=== PATIENT | female | born 1945 ===

== ENCOUNTER 2016-11-15 12:51 | Emergency (ER) | payer MEDICARE, OTHER ==
[2016-11-15 12:52] VITALS: BMI 32.8
[2016-11-15 13:01] VITALS: BP 139/81; PULSE 66; RESP 18; TEMP 97.5; O2SAT 98
--- NOTE | 2016-11-15 14:03 | C.PDOC ---
History Of Present Illness Valentina Cline, a 71 year old female, with a past medical history of arthritis presents to the ED complaining of pain in her right shoulder and right back radiating down her right arm associated with paresthesias x1 week. Her family member states that she has been bathing in cold water and that may be the cause of her pain. Denies chest pain, shortness of breath, fall, injury. PMD: Dmitry Roman Jr. Time Seen by Provider: 11/15/16 13:39 Chief Complaint (Nursing): Upper Extremity Problem/Injury History Per: Patient, Family History/Exam Limitations: no limitations Onset/Duration Of Symptoms: Days Current Symptoms Are (Timing): Still Present Quality: "Pain" Pain Scale Rating Of: 10 Exacerbating Factor(s): Worse At Night Recent travel outside of the [place]: No Past Medical History Reviewed: Historical Data, Nursing Documentation, Vital Signs Vital Signs: Last Vital Signs Temp 97.5 F L 11/15/16 12:59 Pulse 66 11/15/16 12:59 Resp 18 11/15/16 12:59 BP 139/81 11/15/16 12:59 Pulse Ox 98 11/15/16 14:36 - Medical History PMH: Arthritis, Depression, HTN, Hyperlipidemia, Hyperthyroidism, Hypothyroidism Denies: Chronic Kidney Disease Surgical History: No Surg Hx - [facility] Procedures ESOPHAGOGASTRODUODENOSCOPY [EGD] W/CLOSED BIOPSY (08/22/14) Family History: States: Unknown Family Hx - Social History Hx Tobacco Use: No Hx Alcohol Use: No Hx Substance Use: No - Immunization History Hx Tetanus Toxoid Vaccination: No Hx Influenza Vaccination: No Hx Pneumococcal Vaccination: No Review Of Systems Cardiovascular: Negative for: Chest Pain Respiratory: Negative for: Shortness of Breath Musculoskeletal: Positive for: Shoulder Pain (right shoulder pain), Arm Pain ( right arm pain), Back Pain (right back pain) Physical Exam - Physical Exam Appears: Well, Non-toxic, No Acute Distress Skin: Normal Color, Warm, Dry, No Rash Head: Atraumatic, Normacephalic, No Tenderness, No Swelling Eye(s): bilateral: Normal Inspection, PERRL, EOMI Oral Mucosa: Moist Neck: Normal ROM, Paracervical Tenderness, Supple Cardiovascular: Rhythm Regular, No Edema, No Murmur Respiratory: Normal Breath Sounds, No Rales, No Rhonchi, No Wheezing Back: No Normal Inspection (Paracervical tenderness and paralumbar tenderness.) Extremity: Normal ROM (Full ROM of right arm) Neurological/Psych: Oriented x3, Normal Speech, Normal Cognition, Normal Motor, Normal Sensation Gait: Steady ED Course And Treatment O2 Sat by Pulse Oximetry: 98 (RA) Pulse Ox Interpretation: Normal Medical Decision Making Medical Decision Making: On re-exam, the patient reports improvement of symptoms. Lungs are CTA, heart is RRR, abdomen is soft non-tender and patient is tolerating PO well. Ambulatory in the ED with steady gait. Follow up with the medical doctor within 1-2 days. Return if worsened. Disposition - Disposition Referrals: Dmitry Hui Jr., MD [Medical Doctor] - Disposition: HOME/ ROUTINE Disposition Time: 14:34 Condition: GOOD Additional Instructions: Follow up with the medical doctor within 1-2 days without fail. Return if worsened. Prescriptions: Acetaminophen [Tylenol] 325 mg PO Q6 PRN #30 tab PRN Reason: Pain, Mild (1-3) Cyclobenzaprine [Flexeril] 5 mg PO TID #21 tab Ibuprofen [Motrin] 1 tab PO TID PRN #30 tab PRN Reason: Pain Instructions: Cervical Radiculopathy (ED) Forms: [facility] (Burkinan) Print Language: URDU - Clinical Impression Clinical Impression: Cervical radiculopathy - Scribe Statement The provider has reviewed the documentation as recorded by the Scribsamson Deleon All medical record entries made by the Genibe were at my direction and personally dictated by me. I have reviewed the chart and agree that the record accurately reflects my personal performance of the history, physical exam, medical decision making, and the department course for this patient. I have also personally directed, reviewed, and agree with the discharge instructions and disposition.
== END 2016-11-15 14:51 | disposition home or self-care (01) ==
LOC: C.ER 12:51
DX: M54.12 Radiculopathy, cervical region (principal)
CPT/HCPCS: 96372; 99283; J1885

== ENCOUNTER 2016-11-25 07:14 | Day surgery (SDC) | payer MEDICARE, OTHER ==
[2016-11-25] MEDS ORDERED: Propofol 10 mg/ml Inj (20 ML) ONE (07:37)
[2016-11-25] MEDS ORDERED: Lactated Ringer's 500 ML IV ONE (09:25)
--- NOTE | 2016-11-25 09:26 | CP.SDSHP ---
Same Day Surgery H & P - History Proposed Procedure: Colonoscopy and biopsy Pre-Op Diagnosis: Chronic Diarrhea - Previous Medical/Surgical History Cardiac: Hypertension Endocrine/Metabolic: Thyroid Disease, Diabetes Previous Surgical History: Cholecystectomy - Allergies Allergies: Allergies Penicillins Allergy (Verified 11/15/16 13:01) shellfish derived Allergy (Verified 11/15/16 13:01) - Current Medications Current Medications: reviewed, per reconciliation - Physical Exam General Appearance: wdwn nad Vital Signs: Vital Signs 11/25/16 08:04 Temperature 97.4 F L Pulse Rate 73 Respiratory 20 Rate Blood Pressure 150/72 O2 Sat by Pulse 98 Oximetry Mental Status: Alert & Oriented x3 Heart: WNL Lungs: WNL GI: WNL - {Optional Preform as Required} Abdomen: WNL - Impression Impression: Chronic Diarrhea Pt. Evaluated Today:Candidate for Anesthesia & Procedure: Yes - Date & Time Date: 11/25/16 Time: 09:26 Short Stay Discharge - Short Stay Discharge Admitting Diagnosis/Reason for Visit: DIARRHEA, UNSPECIFIED Disposition: HOME/ ROUTINE
[2016-11-25 10:17] VITALS: RESP 19
[2016-11-25 12:34] VITALS: BP 141/71; PULSE 68; TEMP 97.5; O2SAT 0
== END 2016-11-25 11:15 | disposition home or self-care (01) ==
LOC: C.ENDO 07:14
PROVIDERS: ATTEND Internal Medicine Gastroenterology
DX: D12.3 Benign neoplasm of transverse colon (principal); K52.9 Noninfective gastroenteritis and colitis, unspecified; K57.30 Diverticulosis of large intestine without perforation or abscess without bleeding; K62.89 Other specified diseases of anus and rectum; E11.9 Type 2 diabetes mellitus without complications; E03.9 Hypothyroidism, unspecified; E78.5 Hyperlipidemia, unspecified; I10 Essential (primary) hypertension; K21.9 Gastro-esophageal reflux disease without esophagitis
CPT/HCPCS: 45380; 45385; 82948; 87045; 87177; 87209; 87230; 88305; 88313; 88342; J2704; J7120

== ENCOUNTER 2017-03-17 14:52 | Emergency (ER) | payer MEDICARE, OTHER ==
[2017-03-17 15:03] VITALS: BMI 32.9
[2017-03-17 15:11] VITALS: PULSE 64; O2SAT 94
--- NOTE | 2017-03-17 16:44 | C.PDOC ---
History Of Present Illness 71 year old female presents to the ED for evaluation of muscular type pain across her shoulders and front chest. Patient described the pain as sharp, stabbing that later turns into pressure like that lasts 10 seconds comes and goes and happens through out the day. Patient was seen by Dr. Hui 2 days ago and prescribed her meloxicam that she has been taking for 2 days with no relief. Patient denies SOB or cough, nausea, vomit, dizziness, abdominal pain, diarrhea. Time Seen by Provider: 03/17/17 15:48 Chief Complaint (Nursing): Chest Pain History Per: Patient History/Exam Limitations: no limitations Onset/Duration Of Symptoms: Days Current Symptoms Are (Timing): Still Present Quality: Sharp, Pressure, "Pain" Modifying Factors: None Exacerbating Factors: None Recent travel outside of the [place]: No Additional History Per: Patient Past Medical History Reviewed: Historical Data, Nursing Documentation, Vital Signs Vital Signs: Last Vital Signs Temp 98.0 F 03/17/17 15:07 Pulse 64 03/17/17 15:07 Resp 16 03/17/17 15:07 BP 134/90 03/17/17 15:07 Pulse Ox 94 L 03/17/17 18:46 - Medical History PMH: Arthritis, Depression, Diverticulitis, HTN, Hypercholesterolemia, Hyperlipidemia, Hyperthyroidism, Hypothyroidism Denies: Chronic Kidney Disease Surgical History: Cholecystectomy - [facility] Procedures ESOPHAGOGASTRODUODENOSCOPY [EGD] W/CLOSED BIOPSY (08/22/14) Family History: States: Unknown Family Hx - Social History Hx Tobacco Use: No Hx Alcohol Use: No Hx Substance Use: No - Immunization History Hx Tetanus Toxoid Vaccination: No Hx Influenza Vaccination: No Hx Pneumococcal Vaccination: Yes Review Of Systems Constitutional: Negative for: Fever, Chills Cardiovascular: Positive for: Chest Pain. Negative for: Palpitations Respiratory: Negative for: Cough, Shortness of Breath Gastrointestinal: Negative for: Nausea, Vomiting, Abdominal Pain Musculoskeletal: Positive for: Shoulder Pain (B/L) Neurological: Negative for: Weakness, Numbness, Headache, Dizziness Physical Exam - Physical Exam Appears: Non-toxic, No Acute Distress Skin: Normal Color, Warm, Dry Head: Atraumatic, Normacephalic Nose: No Discharge Oral Mucosa: Moist Neck: Normal ROM, Supple Chest: Symmetrical Cardiovascular: Rhythm Regular, No Murmur Respiratory: Normal Breath Sounds, No Rales, No Rhonchi, No Wheezing Gastrointestinal/Abdominal: Soft, No Tenderness, No Distention, No Rebound Back: Other (B/L muscle tenderness to palpation across upper shoulder ) Extremity: Normal ROM, No Pedal Edema, No Calf Tenderness, No Deformity, No Swelling Neurological/Psych: Oriented x3, Normal Speech, Normal Cognition Gait: Steady ED Course And Treatment - Laboratory Results Result Diagrams: 03/17/17 16:53 03/17/17 16:52 Lab Interpretation: Normal ECG: Interpreted By Me ECG Rhythm: Sinus Rhythm (with mild criteria for LVH) O2 Sat by Pulse Oximetry: 94 (On RA) Pulse Ox Interpretation: Normal - Radiology CXR: Viewed By Az CXR Interpretation: Yes: Infiltrates (Left basilar atelectasis/infiltrate and or small effusion. Right basilar atelectasis/infiltrate. ), Cardiomegaly ( Cardiomegaly. Tortuous aorta.) Progress Note: Portable CXR showing a new effusion with bibasilar atelectasis/ infiltrates. Repeat PA and Lat CXR ordered. Reevaluation Time: 20:32 Reassessment Condition: Improved (Repeat CXR normal compared to prior.) - Physician Consult Information Time Consulting Physician Contacted: 18:43 Physician Contacted: Dmitry Hui Jr. Outcome Of Conversation: He will follow up with patient in the office this week. Medical Decision Making Medical Decision Making: Impression : 71 y/o female with muscle pain across her upper shoulders B/L Plan: * EKG * Blood work * CXR Disposition Counseled Patient/Family Regarding: Studies Performed, Diagnosis, Need For Followup - Disposition Referrals: Dmitry Hui Jr., MD [Medical Doctor] - Disposition: HOME/ ROUTINE Disposition Time: 20:35 Condition: STABLE Additional Instructions: Continue taking the Meloxicam as prescribed. Take tylenol if additional pain medication is needed. Use a topical rub like Icy Hot for local relief. Instructions: Musculoskeletal Pain (ED) Print Language: MALAWIAN - Clinical Impression Clinical Impression: Musculoskeletal pain - Scribe Statement The provider has reviewed the documentation as recorded by the Scribe Odilon Solano All medical record entries made by the Scribe were at my direction and personally dictated by me. I have reviewed the chart and agree that the record accurately reflects my personal performance of the history, physical exam, medical decision making, and the department course for this patient. I have also personally directed, reviewed, and agree with the discharge instructions and disposition.
[2017-03-17 17:00] LABS: BASO # 0.1 K/uL (0.0-0.2); BASO % 1.5 % (0.0-2.0); EOS # 0.2 K/uL (0.0-0.7); EOS % 3.4 % (0.0-4.0); HEMATOCRIT 40.8 % (34.0-47.0); LYMPH # 1.8 K/uL (1.0-4.3); LYMPH % 27.7 % (20.0-40.0); MEAN CORPUSCULAR HEMOGLOBIN 30.3 pg (27.0-31.0); MEAN CORPUSCULAR HGB CONC 34.7 g/dL (33.0-37.0); MEAN PLATELET VOLUME 8.7 fL (7.2-11.7); MONO # 0.6 K/uL (0.0-0.8); MONO % 9.7 % (0.0-10.0); NRBC % 0.1 % (0.0-2.0); RED CELL DISTRIBUTION WIDTH 14.4 % (11.5-14.5); WHITE BLOOD COUNT 6.6 K/uL (4.8-10.8)
[2017-03-17 17:03] LABS: MEAN CELL VOLUME 87.2 fL (81.0-99.0)
[2017-03-17 17:09] LABS: ALB/GLOB RATIO 1.3 (1.0-2.1); ALKALINE PHOSPHATASE 69 U/L (38-126); ALT/SGPT 24 U/L (9-52); AST/SGOT 27 U/L (14-36); BILIRUBIN,TOTAL 0.5 mg/dL (0.2-1.3); BLOOD UREA NITROGEN 18 mg/dL (7-17); CALCIUM 8.6 mg/dl (8.6-10.4); CARBON DIOXIDE 28 mmol/L (22-30); CHLORIDE 100 mmol/L (98-107); GFR AFRICAN-AMERICAN > 60; GLUCOSE,RANDOM 97 mg/dL (65-105); POTASSIUM 4.1 mmol/L (3.6-5.2); SODIUM 135 mmol/L (132-148); TOTAL PROTEIN 6.6 g/dL (6.3-8.3)
--- NOTE | 2017-03-17 17:39 | RAD ---
HISTORY: SOB COMPARISON: Chest x-ray performed 01/28/17, lung bases on CT of the abdomen and pelvis performed 01/28/17 TECHNIQUE: Chest, one view. FINDINGS: Examination limited by habitus. LUNGS: Left basilar atelectasis/infiltrate and or small effusion. Right basilar atelectasis/infiltrate. No definite pneumothorax. Please note that chest x-ray has limited sensitivity for the detection of pulmonary masses. CARDIOVASCULAR: Cardiomegaly. Tortuous aorta. OSSEOUS STRUCTURES: Degenerative changes. VISUALIZED UPPER ABDOMEN: Mild elevation of the right hemidiaphragm. OTHER FINDINGS: None. IMPRESSION: Left basilar atelectasis/infiltrate and or small effusion. Right basilar atelectasis/infiltrate. Cardiomegaly. Tortuous aorta.
[2017-03-17 20:38] VITALS: BP 145/71; RESP 22; TEMP 98.5
--- NOTE | 2017-03-18 09:19 | RAD ---
HISTORY: COMPARISON: 03/17/2017 TECHNIQUE: Chest PA and lateral FINDINGS: LINES AND TUBES: None. LUNG AND PLEURA: The lungs are well inflated and clear. There is airspace in the right lung base. HEART AND MEDIASTINUM: The heart is not enlarged. The hilar and mediastinal contours are within normal limits. SKELETAL STRUCTURES: The bony structures are within normal limits for the patient's age. VISUALIZED UPPER ABDOMEN: Normal. OTHER FINDINGS: None. IMPRESSION: Airspace disease in the right lung base may represent atelectasis or pneumonia. Follow-up after medical management is recommended to ensure complete resolution.
== END 2017-03-17 20:37 | disposition home or self-care (01) ==
LOC: C.ER 14:52
DX: M79.1 Myalgia (principal)

== ENCOUNTER 2017-12-11 22:09 | Emergency (ER) | payer MEDICARE, OTHER ==
[2017-12-11 22:09] VITALS: BMI 32.9
[2017-12-11 22:29] VITALS: O2SAT 97
[2017-12-11 22:37] VITALS: BP 141/80; PULSE 78; TEMP 99.6
--- NOTE | 2017-12-11 23:43 | C.PDOC ---
History Of Present Illness Pt c/o of pain to right shoulder x 3 days progressively worse. States past h/o of arthritis with past shoulder pain but more painful today worse with movements. Patient denies trauma, weakness or numbness of the extremity. Pt also c/o of pain nad itching to throat , took 1 tab of an antibiotic pill earlier, no URI sx, no dysphagia, drooling or neck swelling Time Seen by Provider: 12/11/17 22:44 Chief Complaint (Nursing): Upper Extremity Problem/Injury History Per: Patient, Family (sons) History/Exam Limitations: no limitations Current Symptoms Are (Timing): Still Present Quality: "Pain" Severity: Moderate Recent travel outside of the [place]: No Past Medical History Vital Signs: Last Vital Signs Temp 99.6 F 12/11/17 22:35 Pulse 78 12/11/17 22:35 Resp 18 12/11/17 22:35 BP 141/80 12/11/17 22:35 Pulse Ox 97 12/11/17 22:35 - Medical History PMH: Arthritis, Depression, Diverticulitis, HTN, Hypercholesterolemia, Hyperlipidemia, Hyperthyroidism, Hypothyroidism Denies: Chronic Kidney Disease Surgical History: Cholecystectomy - [facility] Procedures ESOPHAGOGASTRODUODENOSCOPY [EGD] W/CLOSED BIOPSY (08/22/14) Family History: States: Unknown Family Hx - Social History Hx Tobacco Use: No Hx Alcohol Use: No Hx Substance Use: No - Immunization History Hx Tetanus Toxoid Vaccination: No Hx Influenza Vaccination: No Hx Pneumococcal Vaccination: Yes Review Of Systems Constitutional: Negative for: Chills Cardiovascular: Negative for: Chest Pain Respiratory: Negative for: Cough, Shortness of Breath Musculoskeletal: Positive for: Shoulder Pain (right). Negative for: Back Pain Neurological: Negative for: Weakness, Numbness Physical Exam - Physical Exam Appears: Well, Non-toxic, No Acute Distress Skin: Normal Color Head: Atraumatic Eye(s): bilateral: Normal Inspection Throat: Normal, No Erythema, No Exudate, No Drooling Chest: Symmetrical, No Deformity, No Tenderness Cardiovascular: Rhythm Regular Respiratory: Normal Breath Sounds Extremity: No Normal ROM (causes pain), Tenderness (on palpation and motion of right shoulder), Capillary Refill (< 2 sec), No Deformity, No Swelling Extremity: Bilateral: Atraumatic, Normal Color And Temperature Neurological/Psych: Oriented x3, Normal Cognition, Normal Motor, Normal Sensation Gait: Steady ED Course And Treatment O2 Sat by Pulse Oximetry: 97 Pulse Ox Interpretation: Normal Progress Note: Pt feels better after meds, strep test negative and pt will be dc home with tylenol, arm sling and advised PMD f/u. Return precautions discussed with patient and relative Disposition Counseled Patient/Family Regarding: Diagnosis, Need For Followup - Disposition Referrals: Dmitry Hui Jr., MD [Medical Doctor] - Disposition: HOME/ ROUTINE Disposition Time: 23:43 Condition: STABLE Additional Instructions: Please follwo up with Dr Hui on wednesday Take medications as directed Return to ER if worse Prescriptions: Acetaminophen [8Hr Arthritis Pain] 650 mg PO QID #30 tablet.er Loratadine [Claritin] 10 mg PO DAILY #20 tab Instructions: Shoulder Pain (DC) Print Language: AUSTRALIAN - Clinical Impression Clinical Impression: Arthralgia of shoulder region, right, Sore throat
[2017-12-11 23:55] VITALS: RESP 20
== END 2017-12-11 23:54 | disposition home or self-care (01) ==
LOC: C.ER 22:09
DX: M25.511 Pain in right shoulder (principal); J02.9 Acute pharyngitis, unspecified; E78.00 Pure hypercholesterolemia, unspecified; I10 Essential (primary) hypertension; E78.5 Hyperlipidemia, unspecified
CPT/HCPCS: 87070; 87430; 96372; 99285; J1885

== ENCOUNTER 2017-12-25 12:34 | Observation (INO) | payer MEDICARE, OTHER ==
[2017-12-25 12:34] VITALS: BMI 32.9
[2017-12-25] MEDS ORDERED: Aspirin 325 mg EC Tablets PO STA (13:24)
[2017-12-25 13:44] LABS: BASO % 0.3 % (0.0-2.0); EOS # 0.2 K/uL (0.0-0.7); EOS % 2.5 % (0.0-4.0); HEMOGLOBIN 14.7 g/dL (11.0-16.0); LYMPH # 1.8 K/uL (1.0-4.3); LYMPH % 20.5 % (20.0-40.0); MEAN CELL VOLUME 87.8 fL (81.0-99.0); MEAN CORPUSCULAR HEMOGLOBIN 29.7 pg (27.0-31.0); MEAN CORPUSCULAR HGB CONC 33.9 g/dL (33.0-37.0); MEAN PLATELET VOLUME 8.7 fL (7.2-11.7); MONO # 0.7 K/uL (0.0-0.8); MONO % 8.6 % (0.0-10.0); NEUT # 5.9 K/uL (1.8-7.0); NEUT % 68.1 % (50.0-75.0); NRBC % 0.1 % (0.0-2.0); RBC 4.93 Mil/uL (3.80-5.20); RED CELL DISTRIBUTION WIDTH 14.7 % (11.5-14.5); WHITE BLOOD COUNT 8.7 K/uL (4.8-10.8)
[2017-12-25 13:48] LABS: URINE BILIRUBIN NEGATIVE (NEGATIVE); URINE BLOOD NEGATIVE (NEGATIVE); URINE CLARITY Clear (Clear); URINE COLOR Colorless (YELLOW); URINE GLUCOSE (UA) NORMAL (Normal); URINE LEUKOCYTE ESTERASE NEG Leu/uL (Negative); URINE PROTEIN NEGATIVE (NEGATIVE); URINE UROBILINOGEN NORMAL mg/dL (0.2-1.0)
[2017-12-25] MEDS ORDERED: Aspirin 325 mg EC Tablets PO ONE (13:59)
[2017-12-25 14:00] LABS: ALBUMIN 4.1 g/dL (3.5-5.0); BLOOD UREA NITROGEN 14 mg/dL (7-17); CALCIUM 9.1 mg/dl (8.6-10.4); GFR NON-AFRICAN AMERICAN > 60
[2017-12-25 14:07] LABS: ALT/SGPT 19 U/L (9-52); AST/SGOT 36 U/L (14-36)
--- NOTE | 2017-12-25 14:07 | C.PDOC ---
History Of Present Illness 72 y/o female, presents to the ER with son, complaining of positionally and digitally reproducible chest pain, positionally and digitally reproducible right shoulder and right arm pain which began in the morning today. Patient is also complaining of mild headache. She notes that she has recent social stressor, she has a sick sibling. Patient denies having SOB,cough, fever, chills, weakness and numbness. Time Seen by Provider: 12/25/17 13:19 Chief Complaint (Nursing): Weakness/Neurological Deficit History Per: Patient History/Exam Limitations: no limitations Onset/Duration Of Symptoms: Days Current Symptoms Are (Timing): Still Present Severity: Moderate Past Medical History Reviewed: Historical Data, Nursing Documentation, Vital Signs Vital Signs: Last Vital Signs Temp 98.5 F 12/25/17 12:41 Pulse 85 12/25/17 13:53 Resp 17 12/25/17 13:53 BP 151/75 H 12/25/17 13:53 Pulse Ox 98 12/25/17 13:53 - Medical History PMH: Arthritis, Depression, Diverticulitis, HTN, Hypercholesterolemia, Hyperli pidemia, Hyperthyroidism, Hypothyroidism Denies: Chronic Kidney Disease Surgical History: Cholecystectomy - [facility] Procedures ESOPHAGOGASTRODUODENOSCOPY [EGD] W/CLOSED BIOPSY (08/22/14) Family History: States: No Known Family Hx - Social History Hx Tobacco Use: No Hx Alcohol Use: No Hx Substance Use: No - Immunization History Hx Tetanus Toxoid Vaccination: No Hx Influenza Vaccination: No Hx Pneumococcal Vaccination: Yes Review Of Systems Except As Marked, All Systems Reviewed And Found Negative. Constitutional: Negative for: Fever, Chills Cardiovascular: Positive for: Chest Pain Respiratory: Negative for: Cough, Shortness of Breath Musculoskeletal: Positive for: Shoulder Pain (right shoulder pain), Arm Pain (right arm pain) Neurological: Positive for: Headache (mild headache). Negative for: Weakness, Numbness Physical Exam - Physical Exam Appears: Non-toxic, No Acute Distress, Other (elderly female) Skin: Normal Color, Warm, Dry Head: Atraumatic, Normacephalic Eye(s): bilateral: Normal Inspection Nose: Normal Oral Mucosa: Moist Neck: Supple Chest: Symmetrical, Tenderness (digital and positional reproducible tenderness to bilateral parasternal regions) Cardiovascular: Rhythm Regular Respiratory: Normal Breath Sounds, No Rales, No Rhonchi, No Wheezing Gastrointestinal/Abdominal: Normal Exam, Soft, No Tenderness, No Guarding, No Rebound Extremity: Normal ROM, Tenderness (vague tenderness throughout right arm), No Swelling, Other (no tenderness to right shoulder) Neurological/Psych: Oriented x3, Normal Speech ED Course And Treatment - Laboratory Results Result Diagrams: 12/27/17 06:25 12/27/17 06:25 Lab Interpretation: Normal (trop neg. ua neg.) O2 Sat by Pulse Oximetry: 98 Pulse Ox Interpretation: Normal - Radiology CXR: Interpreted by Me CXR Interpretation: Yes: No Acute Disease, Heart Size, Other (widened mediastinum, unchanged from prior) Reevaluation Time: 14:20 Reassessment Condition: Improved - Physician Consult Information Outcome Of Conversation: 1420: d/w Dr. Virgen @ 1330 and 1415, ok to Tele Obs. d/w Medicine Al[facility] Medical Decision Making Medical Decision Making: sternal costochondritis ice packs, NSAIDS R arm discomfort h/o same musculoskeletal Anxiety/depression h/o same exacerbated by dealing with sick relative NAD in ED Disposition Doctor Will See Patient In The: Hospital Counseled Patient/Family Regarding: Studies Performed, Diagnosis - Disposition Disposition: HOSPITALIZED Disposition Time: 14:21 Condition: GOOD - Clinical Impression Clinical Impression: Chest wall discomfort, Right arm pain, Anxiety and depression - Scribe Statement The provider has reviewed the documentation as recorded by the Oj Marcus Provider Attestation: All medical record entries made by the Genibe were at my direction and personally dictated by me. I have reviewed the chart and agree that the record accurately reflects my personal performance of the history, physical exam, medical decision making, and the department course for this patient. I have also personally directed, reviewed, and agree with the discharge instructions and disposition.
--- NOTE | 2017-12-25 14:15 | C.PDOC ---
Time Seen by Provider: 12/25/17 13:19 Chief Complaint (Nursing): Weakness/Neurological Deficit Past Medical History Vital Signs: Last Vital Signs Temp 98.5 F 12/25/17 12:41 Pulse 85 12/25/17 13:53 Resp 17 12/25/17 13:53 BP 151/75 H 12/25/17 13:53 Pulse Ox 98 12/25/17 13:53 - Medical History PMH: Arthritis, Depression, Diverticulitis, HTN, Hypercholesterolemia, Hyperlipidemia, Hyperthyroidism, Hypothyroidism Denies: Chronic Kidney Disease Surgical History: Cholecystectomy - [facility] Procedures ESOPHAGOGASTRODUODENOSCOPY [EGD] W/CLOSED BIOPSY (08/22/14) Family History: States: Unknown Family Hx - Social History Hx Tobacco Use: No Hx Alcohol Use: No Hx Substance Use: No - Immunization History Hx Tetanus Toxoid Vaccination: No Hx Influenza Vaccination: No Hx Pneumococcal Vaccination: Yes ED Course And Treatment - Laboratory Results Result Diagrams: 12/25/17 13:34 12/25/17 13:34 O2 Sat by Pulse Oximetry: 98 Disposition - Disposition
--- NOTE | 2017-12-25 16:08 | CP.PCM.HP ---
History of Present Illness - History of Present Illness History of Present Illness: 72F PMhx arthritis, anxiety, depression, diverticulitis, HTN, HLD, hypothyroidism, presented to ED with son c/o R sided chest pain and R arm pain that started this am. Denied any inciting factors, able to tolerate PO diet without concerns or assoc. N/v. Denied decreased appetite. Describes chest pain as achy, non-radiating. On further questioning, pt reported generalized somatic pain, pointing to her L abdomen, her L leg, and also c/o headache. Pts son at bedside reports that pts brother recently a few days ago, and pt was stressed about her brother being very sick for the past several weeks (does not know that her brother is currently). Pt recently seen in [facility] ED for shoulder pain on 12/11/17 and was recently given steroid injection. Pts son reports that pt has had a flat affect at home and has recently been feeling more depressed. Pt denied SI/HI. Denied shortness of breath, d/c, urinary complaints, vision changes/blurry vision, lightheadedness/dizziness, or other symptoms. No recent changes in medications. Pt recently followed with Dr. Hui in clinic 2 weeks ago. Pt regularly follows w axel Ceja (Cardiology), last saw him 1 month prior, and as per son, stress testing and echo within the past year has been normal. PMhx: as listed above PSurgHx: Cholecystectomy Allergies: iodine, PCN (rash), shellfish Home meds: Carvedilol 25 mg bid, Synthroid 50 mg daily, Januvia 50 mg bid, Nexium 40 mg daily Fam hx: denies Soc hx: Denies smoking, EtOH, or illict drug use Present on Admission - Present on Admission Any Indicators Present on Admission: No Review of Systems - Constitutional Constitutional: Fatigue, Headache. absent: Chills, Fever, Weight Gain, Weight Loss - EENT Eyes: absent: Blurred Vision, Change in Vision - Cardiovascular Cardiovascular: Chest Pain, Chest Pain with Activity. absent: Dyspnea on Exertion - Gastrointestinal Gastrointestinal: Abdominal Pain, Dyspepsia. absent: Constipation, Diarrhea, Vomiting Past Patient History - Infectious Disease Hx of Infectious Diseases: None - Past Medical History & Family History Past Medical History?: Yes - Past Social History Smoking Status: Never Smoked - CARDIAC Hx Hypercholesterolemia: Yes Hx Hypertension: Yes - PULMONARY Hx Respiratory Disorders: No - NEUROLOGICAL Hx Neurological Disorder: No - HEENT Hx HEENT Problems: Yes Hx Cataracts: Yes - RENAL Hx Chronic Kidney Disease: No - ENDOCRINE/METABOLIC Hx Hyperthyroidism: Yes Hx Hypothyroidism: Yes - HEMATOLOGICAL/ONCOLOGICAL Hx Blood Disorders: No - INTEGUMENTARY Hx Dermatological Problems: No - MUSCULOSKELETAL/RHEUMATOLOGICAL Hx Arthritis: Yes - GASTROINTESTINAL Hx Diverticulitis: Yes - GENITOURINARY/GYNECOLOGICAL Hx Genitourinary Disorders: No - PSYCHIATRIC Hx Depression: Yes Hx Substance Use: No - SURGICAL HISTORY Hx Cholecystectomy: Yes - ANESTHESIA Hx Anesthesia: Yes Hx Anesthesia Reactions: No Hx Malignant Hyperthermia: No Meds Allergies/Adverse Reactions: Allergies Allergy/AdvReac Type Severity Reaction Status Date / Time iodine Allergy ITCHING Verified 12/25/17 12:44 Penicillins Allergy SWELLING Verified 12/25/17 12:44 shellfish derived Allergy ITCHING Verified 12/25/17 12:44 Physical Exam - Constitutional Appears: Non-toxic, No Acute Distress - Head Exam Head Exam: ATRAUMATIC, NORMOCEPHALIC - Eye Exam Eye Exam: EOMI, Normal appearance, PERRL - ENT Exam ENT Exam: Mucous Membranes Moist - Respiratory Exam Respiratory Exam: Chest Wall Tenderness, Clear to Auscultation Bilateral, NORMAL BREATHING PATTERN. absent: Rales, Rhonchi, Wheezes - Cardiovascular Exam Cardiovascular Exam: REGULAR RHYTHM, +S1, +S2. absent: Gallop, Rubs, Systolic Murmur - GI/Abdominal Exam GI & Abdominal Exam: Normal Bowel Sounds, Soft. absent: Distended, Firm, Guarding, Organomegaly, Rebound, Rigid, Tenderness - Extremities Exam Extremities exam: Positive for: full ROM, normal capillary refill, normal inspection, pedal pulses present. Negative for: pedal edema - Neurological Exam Neurological exam: Alert, CN II-XII Intact, Oriented x3, Reflexes Normal - Psychiatric Exam Psychiatric exam: Flat Affect - Skin Skin Exam: Dry, Intact, Normal Color, Warm Results - Vital Signs Recent Vital Signs: Last Vital Signs Temp 98.5 F 12/25/17 12:41 Pulse 85 12/25/17 13:53 Resp 17 12/25/17 13:53 BP 151/75 H 12/25/17 13:53 Pulse Ox 98 12/25/17 14:35 - Labs Result Diagrams: 12/25/17 13:34 12/25/17 13:34 Labs: Laboratory Results - last 24 hr 12/25/17 12/25/17 12/25/17 12:55 13:34 13:34 WBC 8.7 RBC 4.93 Hgb 14.7 Hct 43.3 MCV 87.8 MCH 29.7 MCHC 33.9 RDW 14.7 H Plt Count 227 MPV 8.7 Neut % (Auto) 68.1 Lymph % (Auto) 20.5 Weber % (Auto) 8.6 Eos % (Auto) 2.5 Baso % (Auto) 0.3 Neut # (Auto) 5.9 Lymph # (Auto) 1.8 Weber # (Auto) 0.7 Eos # (Auto) 0.2 Baso # (Auto) 0.0 Sodium Potassium Chloride Carbon Dioxide Anion Gap BUN Creatinine Est GFR ( Amer) Est GFR (Non-Af Amer) POC Glucose (mg/dL) 97 Random Glucose Calcium Total Bilirubin AST ALT Alkaline Phosphatase Troponin I Total Protein Albumin Globulin Albumin/Globulin Ratio Urine Color Colorless Urine Clarity Clear Urine pH 7.0 Ur Specific [place] 1.002 L Urine Protein Negative Urine Glucose (UA) Normal Urine Ketones Negative Urine Blood Negative Urine Nitrate Negative Urine Bilirubin Negative Urine Urobilinogen Normal Ur Leukocyte Esterase Neg 12/25/17 13:34 WBC RBC Hgb Hct MCV MCH MCHC RDW Plt Count MPV Neut % (Auto) Lymph % (Auto) Weber % (Auto) Eos % (Auto) Baso % (Auto) Neut # (Auto) Lymph # (Auto) Weber # (Auto) Eos # (Auto) Baso # (Auto) Sodium 142 Potassium 4.7 Chloride 103 Carbon Dioxide 30 Anion Gap 14 BUN 14 Creatinine 0.9 Est GFR ( Amer) > 60 Est GFR (Non-Af Amer) > 60 POC Glucose (mg/dL) Random Glucose 97 Calcium 9.1 Total Bilirubin 0.6 AST 36 D ALT 19 Alkaline Phosphatase 95 Troponin I < 0.0120 Total Protein 8.1 Albumin 4.1 Globulin 4.0 H Albumin/Globulin Ratio 1.0 Urine Color Urine Clarity Urine pH Ur Specific [place] Urine Protein Urine Glucose (UA) Urine Ketones Urine Blood Urine Nitrate Urine Bilirubin Urine Urobilinogen Ur Leukocyte Esterase Assessment & Plan - Assessment and Plan (Free Text) Assessment: 72F PMhx arthritis, anxiety, depression, diverticulitis, HTN, HLD, hypothyroidism, presented to ED with son c/o R sided chest pain and R arm pain that started this am. Likely 2/2 costochondritis due to reproducible chest pain on exam. Plan: Chest pain likely 2/2 costochondritis, r/o ACS LINO x2 neg CXR demonstrates poor inspiration, atelectasis, cannot exclude left lower lobe infiltrates, continue to monitor, consider possible repeat XR EKG NSR, no acute St-t changes Cardiology consulted (Dr. Ceja) recs appreciated Afebrile, vital signs stable, continue to monitor Anxiety/depression Pt's son reported recent stressor of pt's brother being sick over past several weeks Pt admits to feeling depressed, denied SI/HI Psych consulted (Dr. Reilly) recs appeciated Hx HTN C/w carvedilol 25 mg PO bid Hx hypothyroidism C/w synthroid 50 mcg daily TSH pending in am Hx diverticulitis/acid reflux Nexium 40 mg PO daily Plan discussed with and further recommendations as per Dr. Hui, attending. Yosi Berman DO PGY-1, Elementary School Director Pager #[phone]
--- NOTE | 2017-12-25 16:49 | RAD ---
Date of service: 12/25/2017 PROCEDURE: CHEST RADIOGRAPH, 1 VIEW HISTORY: SOB COMPARISON: None available. FINDINGS: LUNGS: Poor inspiration with low lung volumes, crowded bronchovascular markings and bibasilar atelectasis. Developing lower lobe infiltrates cannot be completely excluded. PLEURA: No pneumothorax or pleural fluid seen. CARDIOVASCULAR: Cardiomegaly with ectatic uncoiled aorta. OSSEOUS STRUCTURES: No significant abnormalities. VISUALIZED UPPER ABDOMEN: Normal. OTHER FINDINGS: None. IMPRESSION: Poor inspiration with low lung volumes, crowded bronchovascular markings and bibasilar atelectasis. Developing lower lobe infiltrates cannot be completely excluded.
[2017-12-25 17:02] VITALS: RESP 20
[2017-12-25 17:25] LABS: CK-MB 0.49 ng/mL (0.0-3.38)
[2017-12-26] MEDS: Levothyroxine 50 MCG TAB PO SCH (06:05)
[2017-12-26 07:41] LABS: BASO % 0.3 % (0.0-2.0); EOS # 0.3 K/uL (0.0-0.7); EOS % 4.5 % (0.0-4.0); HEMOGLOBIN 14.6 g/dL (11.0-16.0); LYMPH # 1.9 K/uL (1.0-4.3); LYMPH % 25.6 % (20.0-40.0); MEAN CELL VOLUME 87.8 fL (81.0-99.0); MEAN CORPUSCULAR HEMOGLOBIN 29.6 pg (27.0-31.0); MEAN CORPUSCULAR HGB CONC 33.7 g/dL (33.0-37.0); MEAN PLATELET VOLUME 8.6 fL (7.2-11.7); MONO # 0.7 K/uL (0.0-0.8); MONO % 9.9 % (0.0-10.0); NEUT # 4.4 K/uL (1.8-7.0); NEUT % 59.7 % (50.0-75.0); RBC 4.93 Mil/uL (3.80-5.20); RED CELL DISTRIBUTION WIDTH 14.8 % (11.5-14.5); WHITE BLOOD COUNT 7.4 K/uL (4.8-10.8)
[2017-12-26 08:28] LABS: ALBUMIN 3.6 g/dL (3.5-5.0); ALT/SGPT 21 U/L (9-52); AST/SGOT 20 U/L (14-36); BLOOD UREA NITROGEN 18 mg/dL (7-17); CALCIUM 9.2 mg/dl (8.6-10.4); GFR NON-AFRICAN AMERICAN 54
--- NOTE | 2017-12-26 10:26 | CP.PCM.CON ---
History of Present Illness - History of Present Illness History of Present Illness: I was asked to evalute patient by Dr clark. Patient is a 72 year old feamle with HTN DM who presents with chest pain. She states she was at home when the pain developed in her chest, with associated headache. The patient presented to the hospital for further management. Troponin has been negative. Review of Systems - Constitutional Constitutional: absent: As Per HPI, Anorexia, Chills, Daytime Sleepiness, Excessive Sweating, Fatigue, Fever, Frequent Falls, Headache, Increased Appetite, Lethargy, Malaise, Night Sweats, Snoring, Sleep Apnea, Weight Gain, Weight Loss, Weakness, Other - EENT Eyes: absent: As Per HPI, Blind Spots, Blurred Vision, Change in Vision, Decreased Night Vision, Diplopia, Discharge, Dry Eye, Exophthalmos, Floaters, Irritation, Itchy Eyes, Loss of Peripheral Vision, Pain, Photophobia, Requires Corrective Lenses, Sees Flashes, Spots in Vision, Tunnel Vision, Other Visual Disturbances, Loss of Vision, Other Ears: absent: As Per HPI, Decreased Hearing, Ear Discharge, Ear Pain, Tinnitus, Abnormal Hearing, Disequilibrium, Dizziness, Other Nose/Mouth/Throat: absent: As Per HPI, Epistaxis, Nasal Congestion, Nasal Discharge, Nasal Obstruction, Nasal Trauma, Nose Pain, Post Nasal Drip, Sinus Pain, Sinus Pressure, Bleeding Gums, Change in Voice, Dental Pain, Dry Mouth, Dysphagia, Halitosis, Hoarsness, Lip Swelling, Mouth Lesions, Mouth Pain, Odyn ophagia, Sore Throat, Throat Swelling, Tongue Swelling, Facial Pain, Neck Pain, Neck Mass, Other - Breasts Breasts: absent: As Per HPI, Change in Shape, Mass, Pain, Nipple Discharge, Nipple Inversion, Skin Changes, Swelling, Other - Cardiovascular Cardiovascular: Chest Pain - Respiratory Respiratory: absent: As Per HPI, Cough, Dyspnea, Hemoptysis, Dyspnea on Exertion, Wheezing, Snoring, Stridor, Pain on Inspiration, Chest Congestion, Excessive Mucous Production, Change in Mucous Color, Pain with Coughing, Other - Gastrointestinal Gastrointestinal: absent: As Per HPI, Abdominal Pain, Belching, Bloating, Change in Bowel Habits, Change in Stool Character, Coffee Ground Emesis, Constipation, Cramping, Diarrhea, Dyspepsia, Dysphagia, Early Satiety, Excessive Flatus, Fecal Incontinence, Heartburn, Hematemesis, Hematochezia, Loose Stools, Melena, Nausea, Odynophagia, Temesmus, Vomiting, Other - Genitourinary Genitourinary: absent: As Per HPI, Change in Urinary Stream, Difficulty Urinating, Dysuria, Flank Pain, Hematuria, Pyuria, Nocturia, Urinary Incontinence, Urinary Frequency, Urinary Hesitance, Urinary Urgency, Voiding Freq/Small Amts, Freq UTI, Hx Renal/Bladder Calculi, Hx /Renal Surgery, Bladder Distension, Other - Musculoskeletal Musculoskeletal: absent: As Per HPI, Abnormal Gait, Arthralgias, Atrophy, Back Pain, Deformity, Joint Swelling, Limited Range of Motion, Loss of Height, Muscle Cramps, Muscle Weakness, Myalgias, Neck Pain, Numbness, Radiating Pain into Limb, Stiffness, Tingling, Other - Integumentary Integumentary: absent: As Per HPI, Acne, Alopecia, Bleeding Lesions, Change in Hair, Change in Nails, Change in Pigmentation, Changing Lesions, Dry Skin, Erythema, Furuncle, Hirsutism, Lesions, New Lesions, Non-Healing Lesions, Photosensitivity, Pruritus, Rash, Skin Pain, Skin Ulcer, Sores, Striae, Swelling, Unusual Bruising, Wounds, Jaundice, Other - Neurological Neurological: absent: As Per HPI, Abnormal Gait, Abnormal Hearing, Abnormal Movements, Abnormal Speech, Behavioral Changes, Burning Sensations, Confusion, Convulsions, Disequilibrium, Dizziness, Numbness, Focal Weakness, Frequent Falls, Headaches, Lack of Coordination, Loss of Vision, Memory Loss, Paresthesias, Radicular Pain, Restless Legs, Sensory Deficit, Syncope, Tingling, Tremor, Vertigo, Weakness, Other Visual Disturbances, Other - Psychiatric Psychiatric: absent: As Per HPI, Abnormal Sleep Pattern, Anhedonia, Anxiety, Auditory Hallucinations, Behavioral Changes, Change in Appetite, Change in Libido, Confusion, Depression, Difficulty Concentrating, Hallucinations, Homicidal Ideation, Hopelessness, Irritability, Memory Loss, Mood Swings, Panic Attacks, Paranoia, Suicidal Ideation, Visual Hallucinations, Tactile Hallucinations, Other - Endocrine Endocrine: absent: As Per HPI, Change in Body Appearance, Change in Libido, Cold Intolorance, Deepening of Voice, Excessive Sweating, Fatigue, Flushing, Heat Intolorance, Increase in Ring/Shoe/Hat Size, Palpitations, Polydipsia, Polyphagia, Polyuria, Other - Hematologic/Lymphatic Hematologic: absent: As Per HPI, Easy Bleeding, Easy Bruising, Lymphadenopathy, Other Past Patient History - Infectious Disease Hx of Infectious Diseases: None - Past Medical History & Family History Past Medical History?: Yes - Past Social History Smoking Status: Never Smoked - CARDIAC Hx Hypercholesterolemia: Yes Hx Hypertension: Yes - PULMONARY Hx Respiratory Disorders: No - NEUROLOGICAL Hx Neurological Disorder: No - HEENT Hx HEENT Problems: Yes Hx Cataracts: Yes - RENAL Hx Chronic Kidney Disease: No - ENDOCRINE/METABOLIC Hx Hyperthyroidism: Yes Hx Hypothyroidism: Yes - HEMATOLOGICAL/ONCOLOGICAL Hx Blood Disorders: No - INTEGUMENTARY Hx Dermatological Problems: No - MUSCULOSKELETAL/RHEUMATOLOGICAL Hx Arthritis: Yes - GASTROINTESTINAL Hx Diverticulitis: Yes - GENITOURINARY/GYNECOLOGICAL Hx Genitourinary Disorders: No - PSYCHIATRIC Hx Depression: Yes Hx Substance Use: No - SURGICAL HISTORY Hx Cholecystectomy: Yes - ANESTHESIA Hx Anesthesia: Yes Hx Anesthesia Reactions: No Hx Malignant Hyperthermia: No Meds Allergies/Adverse Reactions: Allergies Allergy/AdvReac Type Severity Reaction Status Date / Time iodine Allergy ITCHING Verified 12/25/17 12:44 Penicillins Allergy SWELLING Verified 12/25/17 12:44 shellfish derived Allergy ITCHING Verified 12/25/17 12:44 - Medications Medications: Current Medications Acetaminophen (Tylenol 325mg Tab) 650 mg PO Q6H PRN PRN Reason: Pain, moderate (4-7) Carvedilol (Coreg) 25 mg PO BID [facility] Last Admin: 12/26/17 10:04 Dose: 25 mg Heparin Sodium (Porcine) (Heparin) 5,000 units SC Q8 [facility] Last Admin: 12/26/17 10:09 Dose: 5,000 units Home Med (Esomeprazole Magnesium [Nexium]) 40 mg PO DAILY PRN PRN Reason: Heartburn Levothyroxine Sodium (Synthroid) 50 mcg PO 0630 [facility] Last Admin: 12/26/17 06:05 Dose: 50 mcg Sitagliptin Phosphate (Januvia) 50 mg PO BID [facility] Last Admin: 12/26/17 10:04 Dose: 50 mg Physical Exam - Constitutional Appears: Non-toxic - Head Exam Head Exam: NORMAL INSPECTION - Eye Exam Eye Exam: Normal appearance - ENT Exam ENT Exam: Mucous Membranes Moist - Neck Exam Neck exam: Positive for: Full Rom - Respiratory Exam Respiratory Exam: NORMAL BREATHING PATTERN - Cardiovascular Exam Cardiovascular Exam: Bradycardia, REGULAR RHYTHM - GI/Abdominal Exam GI & Abdominal Exam: Normal Bowel Sounds - Rectal Exam Rectal Exam: Deferred - Extremities Exam Extremities exam: Negative for: pedal edema - Back Exam Back exam: NORMAL INSPECTION - Neurological Exam Neurological exam: Alert, Oriented x3 Results - Vital Signs Recent Vital Signs: Last Vital Signs Temp 98.1 F 12/26/17 07:45 Pulse 84 12/26/17 07:45 Resp 20 12/26/17 07:45 BP 131/79 12/26/17 10:04 Pulse Ox 97 12/26/17 07:45 - Labs Result Diagrams: 12/26/17 07:29 12/26/17 07:29 Labs: Laboratory Results - last 24 hr 12/25/17 12/25/17 12/25/17 12:55 13:34 13:34 WBC 8.7 RBC 4.93 Hgb 14.7 Hct 43.3 MCV 87.8 MCH 29.7 MCHC 33.9 RDW 14.7 H Plt Count 227 MPV 8.7 Neut % (Auto) 68.1 Lymph % (Auto) 20.5 Dickson % (Auto) 8.6 Eos % (Auto) 2.5 Baso % (Auto) 0.3 Neut # (Auto) 5.9 Lymph # (Auto) 1.8 Dickson # (Auto) 0.7 Eos # (Auto) 0.2 Baso # (Auto) 0.0 Sodium Potassium Chloride Carbon Dioxide Anion Gap BUN Creatinine Est GFR ( Amer) Est GFR (Non-Af Amer) POC Glucose (mg/dL) 97 Random Glucose Calcium Phosphorus Magnesium Total Bilirubin AST ALT Alkaline Phosphatase Total Creatine Kinase CK-MB (Mass) Troponin I Total Protein Albumin Globulin Albumin/Globulin Ratio TSH 3rd Generation Urine Color Colorless Urine Clarity Clear Urine pH 7.0 Ur Specific [place] 1.002 L Urine Protein Negative Urine Glucose (UA) Normal Urine Ketones Negative Urine Blood Negative Urine Nitrate Negative Urine Bilirubin Negative Urine Urobilinogen Normal Ur Leukocyte Esterase Neg 12/25/17 12/25/17 12/25/17 13:34 16:57 17:12 WBC RBC Hgb Hct MCV MCH MCHC RDW Plt Count MPV Neut % (Auto) Lymph % (Auto) Dickson % (Auto) Eos % (Auto) Baso % (Auto) Neut # (Auto) Lymph # (Auto) Dickson # (Auto) Eos # (Auto) Baso # (Auto) Sodium 142 Potassium 4.7 Chloride 103 Carbon Dioxide 30 Anion Gap 14 BUN 14 Creatinine 0.9 Est GFR ( Amer) > 60 Est GFR (Non-Af Amer) > 60 POC Glucose (mg/dL) 113 H Random Glucose 97 Calcium 9.1 Phosphorus Magnesium Total Bilirubin 0.6 AST 36 D ALT 19 Alkaline Phosphatase 95 Total Creatine Kinase 56 CK-MB (Mass) 0.49 Troponin I < 0.0120 < 0.0120 Total Protein 8.1 Albumin 4.1 Globulin 4.0 H Albumin/Globulin Ratio 1.0 TSH 3rd Generation Urine Color Urine Clarity Urine pH Ur Specific [place] Urine Protein Urine Glucose (UA) Urine Ketones Urine Blood Urine Nitrate Urine Bilirubin Urine Urobilinogen Ur Leukocyte Esterase 12/25/17 12/26/17 12/26/17 20:50 06:10 07:29 WBC 7.4 RBC 4.93 Hgb 14.6 Hct 43.3 MCV 87.8 MCH 29.6 MCHC 33.7 RDW 14.8 H Plt Count 214 MPV 8.6 Neut % (Auto) 59.7 Lymph % (Auto) 25.6 Dickson % (Auto) 9.9 Eos % (Auto) 4.5 H Baso % (Auto) 0.3 Neut # (Auto) 4.4 Lymph # (Auto) 1.9 Dickson # (Auto) 0.7 Eos # (Auto) 0.3 Baso # (Auto) 0.0 Sodium Potassium Chloride Carbon Dioxide Anion Gap BUN Creatinine Est GFR ( Amer) Est GFR (Non-Af Amer) POC Glucose (mg/dL) 106 91 Random Glucose Calcium Phosphorus Magnesium Total Bilirubin AST ALT Alkaline Phosphatase Total Creatine Kinase CK-MB (Mass) Troponin I Total Protein Albumin Globulin Albumin/Globulin Ratio TSH 3rd Generation Urine Color Urine Clarity Urine pH Ur Specific [place] Urine Protein Urine Glucose (UA) Urine Ketones Urine Blood Urine Nitrate Urine Bilirubin Urine Urobilinogen Ur Leukocyte Esterase 12/26/17 07:29 WBC RBC Hgb Hct MCV MCH MCHC RDW Plt Count MPV Neut % (Auto) Lymph % (Auto) Dickson % (Auto) Eos % (Auto) Baso % (Auto) Neut # (Auto) Lymph # (Auto) Dickson # (Auto) Eos # (Auto) Baso # (Auto) Sodium 141 Potassium 4.0 Chloride 104 Carbon Dioxide 28 Anion Gap 13 BUN 18 H Creatinine 1.0 Est GFR ( Amer) > 60 Est GFR (Non-Af Amer) 54 POC Glucose (mg/dL) Random Glucose 101 Calcium 9.2 Phosphorus 3.7 Magnesium 2.2 Total Bilirubin 0.4 AST 20 ALT 21 Alkaline Phosphatase 91 Total Creatine Kinase CK-MB (Mass) Troponin I Total Protein 7.0 Albumin 3.6 Globulin 3.5 Albumin/Globulin Ratio 1.0 TSH 3rd Generation 2.59 Urine Color Urine Clarity Urine pH Ur Specific [place] Urine Protein Urine Glucose (UA) Urine Ketones Urine Blood Urine Nitrate Urine Bilirubin Urine Urobilinogen Ur Leukocyte Esterase - EKG Data EKG Interpreted by: Myself EKG shows normal: Sinus rhythm Rate: Bradycardia Assessment & Plan (1) Chest pain Assessment and Plan: atypi juana features for angina. The cardiac enzymes have been negative. stress test performed September 2016 is normal. Left ventricular function is normal. patient is stable for discharge. Status: Resolved (2) Diabetes Assessment and Plan: risk factor for CAD. medical therapy and risk factor modification was discussed. Status: Chronic
--- NOTE | 2017-12-26 20:12 | CP.PCM.PN ---
Subjective - Date & Time of Evaluation Date of Evaluation: 12/26/17 Time of Evaluation: 09:30 - Subjective Subjective: Pt seen and examined at bedside this am. C/o R arm pain that is slightly improved. Denies chest pain currently. No acute events reported overnight. Pt tolerating PO diet well, slept well overnight, voiding well, passing flatus, reported bowel movement yesterday. Denies headache, dizziness, chest pain, sob, n/v/d/c, abd pain, urinary complaints, or other symptoms. Objective - Vital Signs/Intake and Output Vital Signs (last 24 hours): Temp Pulse Resp BP Pulse Ox 97.7 F 51 L 20 138/76 98 12/26/17 15:54 12/26/17 15:54 12/26/17 15:54 12/26/17 18:33 12/26/17 15:54 Intake and Output: 12/26/17 12/27/17 18:59 06:59 Intake Total 480 Balance 480 - Medications Medications: Current Medications Acetaminophen (Tylenol 325mg Tab) 650 mg PO Q6H PRN PRN Reason: Pain, moderate (4-7) Carvedilol (Coreg) 25 mg PO BID [facility] Last Admin: 12/26/17 18:33 Dose: 25 mg Heparin Sodium (Porcine) (Heparin) 5,000 units SC Q8 [facility] Last Admin: 12/26/17 10:09 Dose: 5,000 units Home Med (Esomeprazole Magnesium [Nexium]) 40 mg PO DAILY PRN PRN Reason: Heartburn Levothyroxine Sodium (Synthroid) 50 mcg PO 0630 [facility] Last Admin: 12/26/17 06:05 Dose: 50 mcg Sitagliptin Phosphate (Januvia) 50 mg PO BID [facility] Last Admin: 12/26/17 18:34 Dose: 50 mg - Labs Labs: 12/26/17 07:29 12/26/17 07:29 - Constitutional Appears: Non-toxic, No Acute Distress - Head Exam Head Exam: ATRAUMATIC, NORMOCEPHALIC - Eye Exam Eye Exam: EOMI, Normal appearance, PERRL - ENT Exam ENT Exam: Mucous Membranes Moist - Respiratory Exam Respiratory Exam: Clear to Ausculation Bilateral, NORMAL BREATHING PATTERN. absent: Rales, Rhonchi, Wheezes - Cardiovascular Exam Cardiovascular Exam: REGULAR RHYTHM, +S1, +S2. absent: Gallop, Rubs, Murmur - GI/Abdominal Exam GI & Abdominal Exam: Soft, Normal Bowel Sounds. absent: Distended, Firm, Guarding, Rigid, Tenderness, Organomegaly, Rebound - Extremities Exam Extremities Exam: Full ROM, Normal Capillary Refill, Normal Inspection. absent: Calf Tenderness, Joint Swelling, Pedal Edema - Neurological Exam Neurological Exam: Alert, Awake, CN II-XII Intact, Normal Gait, Oriented x3 - Psychiatric Exam Psychiatric exam: Flat Affect. absent: Anxious, Homicidal Ideation, Suicidal Ideation - Skin Skin Exam: Dry, Intact, Normal Color, Warm Assessment and Plan - Assessment and Plan (Free Text) Assessment: 72F PMhx arthritis, anxiety, depression, diverticulitis, HTN, HLD, hypothyroidism, presented to ED with son c/o R sided chest pain and R arm pain. Likely 2/2 costochondritis due to reproducible chest pain on exam, chest pain resolved today. Plan: Chest pain likely 2/2 costochondritis, r/o ACS LINO x2 neg CXR demonstrates poor inspiration, atelectasis, cannot exclude left lower lobe infiltrates, continue to monitor, consider possible repeat XR EKG NSR, no acute St-t changes Cardiology consulted (Dr. Ceja) recs appreciated, stable for d/c and can follow outpatient Afebrile, vital signs stable, continue to monitor Tylenol prn for pain Anxiety/depression Pt's son reported recent stressor of pt's brother being sick over past several weeks Pt admits to feeling depressed, denied SI/HI Psych consulted (Dr. Reilly) recs appeciated Hx HTN C/w carvedilol 25 mg PO bid Hx hypothyroidism C/w synthroid 50 mcg daily TSH 2.59, wnl Hx diverticulitis/acid reflux Nexium 40 mg PO daily Plan discussed with and further recommendations as per Dr. Hui, attending. Yosi Berman DO PGY-1, Stepdown Nurse Pager #[phone]
[2017-12-27] MEDS: Levothyroxine 50 MCG TAB PO SCH (05:43)
[2017-12-27 06:39] LABS: BASO % 0.3 % (0.0-2.0); EOS # 0.3 K/uL (0.0-0.7); EOS % 4.8 % (0.0-4.0); HEMOGLOBIN 13.6 g/dL (11.0-16.0); LYMPH # 2.1 K/uL (1.0-4.3); LYMPH % 33.1 % (20.0-40.0); MEAN CELL VOLUME 87.5 fL (81.0-99.0); MEAN CORPUSCULAR HEMOGLOBIN 29.3 pg (27.0-31.0); MEAN CORPUSCULAR HGB CONC 33.4 g/dL (33.0-37.0); MEAN PLATELET VOLUME 8.5 fL (7.2-11.7); MONO # 0.5 K/uL (0.0-0.8); MONO % 8.2 % (0.0-10.0); NEUT # 3.4 K/uL (1.8-7.0); NEUT % 53.6 % (50.0-75.0); NRBC % 0.1 % (0.0-2.0); RBC 4.65 Mil/uL (3.80-5.20); RED CELL DISTRIBUTION WIDTH 14.4 % (11.5-14.5); WHITE BLOOD COUNT 6.4 K/uL (4.8-10.8)
[2017-12-27 07:35] LABS: ALBUMIN 3.6 g/dL (3.5-5.0); ALT/SGPT 24 U/L (9-52); AST/SGOT 23 U/L (14-36); BLOOD UREA NITROGEN 16 mg/dL (7-17); CALCIUM 9.3 mg/dl (8.6-10.4); GFR NON-AFRICAN AMERICAN > 60
[2017-12-27 07:49] VITALS: PULSE 58; TEMP 98.1; O2SAT 98
--- NOTE | 2017-12-27 09:59 | CP.PCM.PN ---
Objective - Vital Signs/Intake and Output Vital Signs (last 24 hours): Temp Pulse Resp BP Pulse Ox 98.1 F 58 L 20 135/97 H 98 12/27/17 07:48 12/27/17 07:48 12/27/17 07:48 12/27/17 07:48 12/27/17 07:48 Intake and Output: 12/27/17 12/27/17 06:59 18:59 Intake Total 240 Balance 240 - Medications Medications: Current Medications Acetaminophen (Tylenol 325mg Tab) 650 mg PO Q6H PRN PRN Reason: Pain, moderate (4-7) Last Admin: 12/27/17 08:58 Dose: 650 mg Carvedilol (Coreg) 25 mg PO BID [facility] Last Admin: 12/26/17 18:33 Dose: 25 mg Heparin Sodium (Porcine) (Heparin) 5,000 units SC Q8 [facility] Last Admin: 12/27/17 05:43 Dose: 5,000 units Levothyroxine Sodium (Synthroid) 50 mcg PO 0630 [facility] Last Admin: 12/27/17 05:43 Dose: 50 mcg Pantoprazole Sodium (Protonix Ec Tab) 40 mg PO DAILY [facility] Sitagliptin Phosphate (Januvia) 50 mg PO BID [facility] Last Admin: 12/26/17 18:34 Dose: 50 mg - Labs Labs: 12/27/17 06:25 12/27/17 06:25
[2017-12-27] MEDS ORDERED: Pantoprazole 40 mg EC Tab PO SCH (10:00)
[2017-12-27 10:15] VITALS: BP 120/78
--- NOTE | 2017-12-27 12:00 | CP.PCM.DIS ---
Provider - Provider Date of Admission: 12/25/17 14:22 Attending physician: Dmitry Hui Jr, MD Time Spent in preparation of Discharge (in minutes): 35 Diagnosis - Discharge Diagnosis (1) Costochondral chest pain Status: Resolved (2) HTN (hypertension) Status: Chronic (3) Anxiety and depression Status: Chronic (4) Acid reflux disease Status: Chronic (5) Hypothyroidism Status: Chronic Hospital Course - Lab Results Lab Results: Most Recent Lab Values WBC 6.4 K/uL (4.8-10.8) 12/27/17 06:25 RBC 4.65 Mil/uL (3.80-5.20) 12/27/17 06:25 Hgb 13.6 g/dL (11.0-16.0) 12/27/17 06:25 Hct 40.7 % (34.0-47.0) 12/27/17 06:25 MCV 87.5 fL (81.0-99.0) 12/27/17 06:25 MCH 29.3 pg (27.0-31.0) 12/27/17 06:25 MCHC 33.4 g/dL (33.0-37.0) 12/27/17 06:25 RDW 14.4 % (11.5-14.5) 12/27/17 06:25 Plt Count 217 K/uL (130-400) 12/27/17 06:25 MPV 8.5 fL (7.2-11.7) 12/27/17 06:25 Neut % (Auto) 53.6 % (50.0-75.0) 12/27/17 06:25 Lymph % (Auto) 33.1 % (20.0-40.0) 12/27/17 06:25 Yell % (Auto) 8.2 % (0.0-10.0) 12/27/17 06:25 Eos % (Auto) 4.8 % (0.0-4.0) H 12/27/17 06:25 Baso % (Auto) 0.3 % (0.0-2.0) 12/27/17 06:25 Neut # (Auto) 3.4 K/uL (1.8-7.0) 12/27/17 06:25 Lymph # (Auto) 2.1 K/uL (1.0-4.3) 12/27/17 06:25 Yell # (Auto) 0.5 K/uL (0.0-0.8) 12/27/17 06:25 Eos # (Auto) 0.3 K/uL (0.0-0.7) 12/27/17 06:25 Baso # (Auto) 0.0 K/uL (0.0-0.2) 12/27/17 06:25 Sodium 141 mmol/L (132-148) 12/27/17 06:25 Potassium 3.8 mmol/L (3.6-5.2) 12/27/17 06:25 Chloride 105 mmol/L (98-107) 12/27/17 06:25 Carbon Dioxide 28 mmol/L (22-30) 12/27/17 06:25 Anion Gap 12 (10-20) 12/27/17 06:25 BUN 16 mg/dL (7-17) 12/27/17 06:25 Creatinine 0.9 mg/dL (0.7-1.2) 12/27/17 06:25 Est GFR ( Amer) > 60 12/27/17 06:25 Est GFR (Non-Af Amer) > 60 12/27/17 06:25 POC Glucose (mg/dL) 153 mg/dL (65-110) H 12/27/17 11:22 Random Glucose 98 mg/dL (65-105) 12/27/17 06:25 Calcium 9.3 mg/dl (8.6-10.4) 12/27/17 06:25 Phosphorus 4.1 mg/dL (2.5-4.5) 12/27/17 06:25 Magnesium 2.0 mg/dL (1.6-2.3) 12/27/17 06:25 Total Bilirubin 0.5 mg/dL (0.2-1.3) 12/27/17 06:25 AST 23 U/L (14-36) 12/27/17 06:25 ALT 24 U/L (9-52) 12/27/17 06:25 Alkaline Phosphatase 85 U/L (38-126) 12/27/17 06:25 Total Creatine Kinase 56 U/L (30-135) 12/25/17 16:57 CK-MB (Mass) 0.49 ng/mL (0.0-3.38) 12/25/17 16:57 Troponin I < 0.0120 ng/mL (0.00-0.120) 12/25/17 16:57 Total Protein 7.0 g/dL (6.3-8.3) 12/27/17 06:25 Albumin 3.6 g/dL (3.5-5.0) 12/27/17 06:25 Globulin 3.5 gm/dL (2.2-3.9) 12/27/17 06:25 Albumin/Globulin Ratio 1.0 (1.0-2.1) 12/27/17 06:25 TSH 3rd Generation 2.59 mIU/L (0.46-4.68) 12/26/17 07:29 Urine Color Colorless (YELLOW) 12/25/17 13:34 Urine Clarity Clear (Clear) 12/25/17 13:34 Urine pH 7.0 (5.0-8.0) 12/25/17 13:34 Ur Specific Dahlgren 1.002 (1.003-1.030) L 12/25/17 13:34 Urine Protein Negative mg/dL (NEGATIVE) 12/25/17 13:34 Urine Glucose (UA) Normal mg/dL (Normal) 12/25/17 13:34 Urine Ketones Negative mg/dL (NEGATIVE) 12/25/17 13:34 Urine Blood Negative (NEGATIVE) 12/25/17 13:34 Urine Nitrate Negative (NEGATIVE) 12/25/17 13:34 Urine Bilirubin Negative (NEGATIVE) 12/25/17 13:34 Urine Urobilinogen Normal mg/dL (0.2-1.0) 12/25/17 13:34 Ur Leukocyte Esterase Neg Dawna/uL (Negative) 12/25/17 13:34 - Hospital Course Hospital Course: On admission: 72F PMhx arthritis, anxiety, depression, diverticulitis, HTN, HLD, hypothyroidism, presented to ED with son c/o R sided chest pain and R arm pain that started this am. Denied any inciting factors, able to tolerate PO diet without concerns or assoc. N/v. Denied decreased appetite. Describes chest pain as achy, non-radiating. On further questioning, pt reported generalized somatic pain, pointing to her L abdomen, her L leg, and also c/o headache. Pts son at bedside reports that pts brother recently a few days ago, and pt was stressed about her brother being very sick for the past several weeks (does not know that her brother is currently). Pt recently seen in [facility] ED for shoulder pain on 12/11/17 and was recently given steroid injection. Pts son reports that pt has had a flat affect at home and has recently been feeling more depressed. Pt denied SI/HI. Denied shortness of breath, d/c, urinary complaints, vision changes/blurry vision, lightheadedness/dizziness, or other symptoms. No recent changes in medications. Pt recently followed with Dr. Hui in clinic 2 weeks ago. Pt regularly follows with Dr. Ceja (Cardiology), last saw him 1 month prior, and as per son, stress testing and echo within the past year has been normal. Pt was seen and examined at bedside. Pt has no complaints at this time. No acute events overnight. Pt denies fever, chills, dizziness, weakness, chest pain, sob, palpitations, abdominal pain, n/v/d, paresthesias. Patient is medically stable and safe for discharge home. Hospital course: Pt was admitted for chest pain, likely due to costochondritis, r/o ACS. She received aspirin 325 mg PO x 1 dose. EKG showed NSR, no acute ST-T wave changes. LINO panel x 2 was negative. Pts chronic medical problems (HTN, GERD, arthritis, hypothyroidism) were controlled with continuing home medications. Patient's re producible chest pain was well controlled with Tylenol Cardiology was consulted (Dr. Ceja) who evaluated the patient and indicated that the pt was stable for discharge home and follow up outpatient. During her hospital stay, the patient was hemodynamically stable. This is a summary of the hospital course, please see chart for full details. Patient is to continue taking home medications: Januvia 50 mg PO twice daily, Synthroid 50 mcg PO daily, Nexium 40 mg PO daily as needed, Coreg 25 mg PO twice daily, Tylenol as needed for arthritis (do not exceed maximum dose of Tylenol). If symptoms worsen, please go to your nearest emergency department for evaluation. Patient instructed to follow up with Dr. Hui in 1 week, and to keep her regularly scheduled appointment with Dr. Ceja. Instructions explained to the patient, who understands and agrees with discharge plan. Discharge Exam - Head Exam Head Exam: ATRAUMATIC, NORMOCEPHALIC - Eye Exam Eye Exam: EOMI, Normal appearance - ENT Exam ENT Exam: Mucous Membranes Moist - Neck Exam Neck exam: Normal Inspection - Respiratory Exam Respiratory Exam: NORMAL BREATHING PATTERN. absent: Chest Wall Tenderness, Rales, Rhonchi, Wheezes, Respiratory Distress - Cardiovascular Exam Cardiovascular Exam: REGULAR RHYTHM, +S1, +S2 - GI/Abdominal Exam GI & Abdominal Exam: Normal Bowel Sounds, Soft. absent: Tenderness - Extremities Exam Extremities exam: normal inspection, pedal pulses present - Back Exam Back exam: NORMAL INSPECTION, paraspinal tenderness (lumbar and thoracic paravertebral tenderness). absent: vertebral tenderness - Neurological Exam Neurological exam: Alert, Oriented x3 - Psychiatric Exam Psychiatric exam: Normal Affect, Normal Mood - Skin Skin Exam: Dry, Normal Color, Warm Discharge Plan - Follow Up Plan Condition: GOOD Disposition: HOME/ ROUTINE Instructions: Type 2 Diabetes, Diabetes Diet , Costochondritis (DC) Additional Instructions: Patient is medically stable and safe for discharge home. Patient is to continue taking home medications: Januvia 50 mg PO twice daily, Synthroid 50 mcg PO daily, Nexium 40 mg PO daily as needed, Coreg 25 mg PO twice daily, Tylenol as needed for arthritis (do not exceed maximum dose of Tylenol). If symptoms worsen, please go to your nearest emergency department for evaluation. Patient instructed to follow up with Dr. Hui in 1 week, and to keep her regularly scheduled appointment with Dr. Ceja. Instructions explained to the patient, who understands and agrees with discharge plan. El paciente es mdicamente estable y seguro para el jerel domiciliaria. El paciente debe continuar tomando medicamentos para el hogar: Januvia 50 mg PO dos veces al da, Synthroid 50 mcg PO diarios, Nexium 40 mg PO diarios segn sea necesario, Coreg 25 mg PO dos veces al da, Tylenol segn sea necesario para la artritis (no exceda la dosis mxima de Tylenol) . Si los sntomas empeoran, dirjase a beatty departamento de emergencias ms cercano para beatty evaluacin. El paciente recibi instrucciones de hacer un seguimiento con el Dr. Hui en 1 semana y de mantener beatty abel programada regularmente con el Dr. Ceja. Instrucciones explicadas al paciente, que comprende y est de acuerdo con el plan de jerel. Referrals: Dmitry Hui Jr., MD [Medical Doctor] - Lizette Ceja MD [Staff Provider] -
--- NOTE | 2017-12-27 22:04 | CARD ---
APPROVED REPORT Date of service: 12/25/2017 EKG Measurement Heart [id number] <Conclusion> Sinus bradycardia Minimal voltage criteria for LVH, may be normal variant Nonspecific T wave abnormality Abnormal ECG
== END 2017-12-27 13:45 | disposition home or self-care (01) ==
LOC: C.ER 12:34 → C.9E 14:22 → C.5S 16:08
PROVIDERS: ADMIT Internal Medicine; ATTEND Internal Medicine
DX: M94.0 Chondrocostal junction syndrome [Tietze] (principal); E03.9 Hypothyroidism, unspecified; E11.9 Type 2 diabetes mellitus without complications; E78.00 Pure hypercholesterolemia, unspecified; F32.9 Major depressive disorder, single episode, unspecified; F41.9 Anxiety disorder, unspecified; I10 Essential (primary) hypertension; K21.9 Gastro-esophageal reflux disease without esophagitis
CPT/HCPCS: 36415; 71045; 80053; 81001; 82948; 83735; 84100; 84443; 84484; 85025; 93005; 96374; 99285; G0378; J1644; J1885

== ENCOUNTER 2018-08-27 12:56 | Observation (INO) | payer MEDICARE, OTHER ==
[2018-08-27 12:56] VITALS: BMI 32.9
[2018-08-27 13:37] LABS: BASO # 0.1 K/uL (0.0-0.2); BASO % 1.1 % (0.0-2.0); EOS # 0.1 K/uL (0.0-0.7); EOS % 1.6 % (0.0-4.0); LYMPH # 1.6 K/uL (1.0-4.3); LYMPH % 19.3 % (20.0-40.0); MEAN CORPUSCULAR HEMOGLOBIN 29.5 pg (27.0-31.0); MEAN CORPUSCULAR HGB CONC 33.6 g/dL (33.0-37.0); MEAN PLATELET VOLUME 8.4 fL (7.2-11.7); MONO # 0.8 K/uL (0.0-0.8); MONO % 9.9 % (0.0-10.0); NEUT # 5.7 K/uL (1.8-7.0); NEUT % 68.1 % (50.0-75.0); RBC 5.08 Mil/uL (3.80-5.20); RED CELL DISTRIBUTION WIDTH 15.3 % (11.5-14.5); WHITE BLOOD COUNT 8.4 K/uL (4.8-10.8)
[2018-08-27 14:00] LABS: ALB/GLOB RATIO 1.1 (1.0-2.1); ALBUMIN 3.9 g/dL (3.5-5.0); ALT/SGPT 18 U/L (9-52); AST/SGOT 27 U/L (14-36); BLOOD UREA NITROGEN 18 mg/dL (7-17); CALCIUM 9.1 mg/dl (8.6-10.4); GFR NON-AFRICAN AMERICAN 54
[2018-08-27 14:09] LABS: B-TYPE NATRIURETIC PEPTIDE 116 pg/mL (0-900)
--- NOTE | 2018-08-27 14:53 | C.PDOC ---
History Of Present Illness 73 year old female with PMHx of pre-diabetes, HTN, and arthritis presents to the ED complaining of chest pain. Reports pain is mainly on the left side of chest and radiates up to her neck and right jaw. Also complains of joint pain in her knees and wrists. Denies any shortness of breath, nausea, headache, neck pain, orthopnea, dyspnea on exertion or any other associated symptoms. Patient has a prior history of ED visits and admissions for same complaint. Time Seen by Provider: 08/27/18 13:14 Chief Complaint (Nursing): Chest Pain History Per: Patient History/Exam Limitations: no limitations Onset/Duration Of Symptoms: Days Current Symptoms Are (Timing): Still Present Quality: "Pain" Associated Symptoms: denies: Nausea, Dyspnea Past Medical History Reviewed: Historical Data, Nursing Documentation, Vital Signs Vital Signs: Last Vital Signs Temp 98.1 F 08/27/18 13:01 Pulse 68 08/27/18 13:01 Resp 18 08/27/18 13:01 BP 145/85 08/27/18 13:01 Pulse Ox 100 08/27/18 13:01 Primary Care Provider: Dmitry Hui Jr. - Medical History PMH: Arthritis, Depression, Diverticulitis, HTN, Hypercholesterolemia, Hyperlipidemia, Hypothyroidism Denies: Hyperthyroidism, Chronic Kidney Disease Surgical History: Cholecystectomy - [facility] Procedures ESOPHAGOGASTRODUODENOSCOPY [EGD] W/CLOSED BIOPSY (08/22/14) Family History: States: No Known Family Hx - Social History Hx Tobacco Use: No Hx Alcohol Use: No Hx Substance Use: No - Immunization History Hx Tetanus Toxoid Vaccination: No Hx Influenza Vaccination: No Hx Pneumococcal Vaccination: Yes Review Of Systems Except As Marked, All Systems Reviewed And Found Negative. Cardiovascular: Positive for: Chest Pain. Negative for: Orthopnea Respiratory: Negative for: Shortness of Breath, SOB with Excertion Gastrointestinal: Negative for: Nausea Musculoskeletal: Negative for: Neck Pain Neurological: Negative for: Headache Physical Exam - Physical Exam Appears: Non-toxic, No Acute Distress, Other (elderly female, afebrile, obese ) Skin: Warm, Dry, No Rash Head: Normacephalic Eye(s): bilateral: Normal Inspection, PERRL, EOMI Nose: Normal Oral Mucosa: Moist Neck: Supple Chest: Symmetrical, Tenderness (mild tenderness on the left side ) Cardiovascular: Rhythm Regular Respiratory: Normal Breath Sounds, No Rales, No Rhonchi, No Wheezing Gastrointestinal/Abdominal: Soft, No Tenderness Extremity: No Pedal Edema Extremity: Bilateral: Normal Color And Temperature, Normal ROM Pulses: Left Dorsalis Pedis: Normal, Right Dorsalis Pedis: Normal Neurological/Psych: Oriented x3, Normal Speech Gait: Steady ED Course And Treatment - Laboratory Results Result Diagrams: 08/27/18 13:33 08/27/18 13:33 Lab Results: Troponin I < 0.0120 ng/mL (0.00-0.120) 08/27/18 13:33 NT-Pro-B Natriuret Pep 116 pg/mL (0-900) 08/27/18 13:33 Total Bilirubin 0.4 mg/dL (0.2-1.3) 08/27/18 13:33 AST 27 U/L (14-36) 08/27/18 13:33 ALT 18 U/L (9-52) 08/27/18 13:33 Alkaline Phosphatase 81 U/L (38-126) 08/27/18 13:33 Total Protein 7.6 g/dL (6.3-8.3) 08/27/18 13:33 Albumin 3.9 g/dL (3.5-5.0) 08/27/18 13:33 Globulin 3.7 gm/dL (2.2-3.9) 08/27/18 13:33 Albumin/Globulin Ratio 1.1 (1.0-2.1) 08/27/18 13:33 ECG: Interpreted By Me, Viewed By Me ECG Rhythm: Sinus Rhythm Interpretation Of ECG: No ST/T wave elevations. Flipped/Flat Ts in inferior and lateral leads. Rate From EC O2 Sat by Pulse Oximetry: 100 (RA) Pulse Ox Interpretation: Abnormal Medical Decision Making Medical Decision Making: Plan - EKG - CXR - Toradol 15mg IVP - UA - Bloodwork 15:[address] Hui, who saw patient on 08/25 and did an Echo. Unable to obtain results today. Because of abdnormal EKG and comorbidity, Dr. Hui will admit for observation. Spoke with House Doctor who accepts patient for admission. Disposition Discussed With : Dmitry Hui Jr. Doctor Will See Patient In The: Hospital Counseled Patient/Family Regarding: Studies Performed - Disposition Disposition: HOSPITALIZED Disposition Time: 14:52 Condition: GUARDED - POA Present On Arrival: None - Clinical Impression Clinical Impression: Chest pain - Scribe Statement The provider has reviewed the documentation as recorded by the Scribe Maame Hammonds All medical record entries made by the Genibe were at my direction and personally dictated by me. I have reviewed the chart and agree that the record accurately reflects my personal performance of the history, physical exam, medical decision making, and the department course for this patient. I have also personally directed, reviewed, and agree with the discharge instructions and disposition. Decision To Admit - Pt Status Changed To: Hospital Disposition Of: Observation - . Bed Request Type: Telemetry Admitting Physician: Dmitry Hui Jr. Patient Diagnosis: Chest pain
--- NOTE | 2018-08-27 15:38 | CP.PCM.HP ---
History of Present Illness - History of Present Illness History of Present Illness: PGY1 H and P for Dr. Hui This is a 73 year old female with PMH costochondritis, anxiety, depression, diverticulitis, HTN, HLD, hypothyroidism, presented to ED with sons (Lore) c/o R sided chest pain, R upper arm pain and right sided neck pain worsening over the past 3 days. She states that she was sitting when the pain started, and it is mostly constant, achy and associated with occasional "pins and needles" to the right side of the face. The achy pain radiates down the irght shoulder and into the right arm when she moves her head to the left. Pt admitted to the ED in november 2017 for similar pain, and was discahrged after being cleared by cardiology. Denies fever, chills, sob, palpitations, cough, abdomnial pain, n/v/d, headache, dizziness, loss of consciousness, trauma to the area, recent illness, hx of blood clot, recent travel, car rides longer than 4 hours. Pt recently seen by Dr. Hui 1 week ago, where regular bloodwork and an EKG was done, normal as per discussion with Dr. Hui by me. As per son, stress testing and echo within the past 2 years has been normal. Reports resolution of pain with Toradol 15 mg IV in the ED. PMhx: as listed above PSurgHx: Cholecystectomy Allergies: iodine, PCN (rash), shellfish Home meds: Carvedilol 25 mg bid, Synthroid 50 mg daily, Januvia 50 mg bid, Nexium 40 mg daily Fam hx: denies Soc hx: Denies smoking, EtOH, or illict drug use Present on Admission - Present on Admission Any Indicators Present on Admission: No Review of Systems - Review of Systems All systems: reviewed and no additional remarkable complaints except (as per HPI) Past Patient History - Infectious Disease Hx of Infectious Diseases: None - Past Medical History & Family History Past Medical History?: Yes - Past Social History Smoking Status: Never Smoked - CARDIAC Hx Hypercholesterolemia: Yes Hx Hypertension: Yes - PULMONARY Hx Respiratory Disorders: No - NEUROLOGICAL Hx Neurological Disorder: No - HEENT Hx HEENT Problems: Yes Hx Cataracts: Yes - RENAL Hx Chronic Kidney Disease: No - ENDOCRINE/METABOLIC Hx Hyperthyroidism: No Hx Hypothyroidism: Yes - HEMATOLOGICAL/ONCOLOGICAL Hx Blood Disorders: No - INTEGUMENTARY Hx Dermatological Problems: No - MUSCULOSKELETAL/RHEUMATOLOGICAL Hx Arthritis: Yes - GASTROINTESTINAL Hx Diverticulitis: Yes - GENITOURINARY/GYNECOLOGICAL Hx Genitourinary Disorders: No - PSYCHIATRIC Hx Depression: Yes Hx Substance Use: No - SURGICAL HISTORY Hx Cholecystectomy: Yes - ANESTHESIA Hx Anesthesia: Yes Hx Anesthesia Reactions: No Hx Malignant Hyperthermia: No Meds Allergies/Adverse Reactions: Allergies Allergy/AdvReac Type Severity Reaction Status Date / Time iodine Allergy ITCHING Verified 12/25/17 12:44 Penicillins Allergy SWELLING Verified 12/25/17 12:44 shellfish derived Allergy ITCHING Verified 12/25/17 12:44 Physical Exam - Additional Findings Additional findings: - Constitutional Appears: Non-toxic, No Acute Distress - Head Exam Head Exam: ATRAUMATIC, NORMOCEPHALIC - Eye Exam Eye Exam: EOMI, Normal appearance, PERRL - ENT Exam ENT Exam: Mucous Membranes Moist - Neck Exam Respiratory Exam: (+) paravertebral tenderness bilaterally (right greater than left), no spinal tenderness, no step off, no rigidtity, limited ROM on rotation bilaterally. - Respiratory Exam Respiratory Exam: Chest Wall Tenderness, Clear to Auscultation Bilateral, NORMAL BREATHING PATTERN. absent: Rales, Rhonchi, Wheezes - Cardiovascular Exam Cardiovascular Exam: REGULAR RHYTHM, +S1, +S2. (+) diffuse anterior chest wall tenderness with muscle hypertonicity. absent: Gallop, Rubs, Systolic Murmur, Tachycardia - GI/Abdominal Exam GI & Abdominal Exam: Normal Bowel Sounds, Soft. absent: Distended, Firm, Guarding, Organomegaly, Rebound, Rigid, Tenderness - Extremities Exam Extremities exam: Positive for: full ROM, normal capillary refill, normal inspection, pedal pulses present. Negative for: pedal edema - Neurological Exam Neurological exam: Alert, CN II-XII Intact, Oriented x3, Reflexes Normal. 5/5 strength in bilateral upper and lower extremities. Negative babinksi bilaterally - Psychiatric Exam Psychiatric exam: Normal affect, normal mood - Skin Skin Exam: Dry, Intact, Normal Color, Warm Results - Vital Signs Recent Vital Signs: Last Vital Signs Temp 98.1 F 08/27/18 13:01 Pulse 59 L 08/27/18 15:30 Resp 15 08/27/18 15:30 BP 115/58 L 08/27/18 15:30 Pulse Ox 97 08/27/18 15:30 - Labs Result Diagrams: 08/27/18 13:33 08/27/18 13:33 Labs: Laboratory Results - last 24 hr 08/27/18 08/27/18 13:33 13:33 WBC 8.4 RBC 5.08 Hgb 15.0 Hct 44.7 MCV 88.0 MCH 29.5 MCHC 33.6 RDW 15.3 H Plt Count 231 MPV 8.4 Neut % (Auto) 68.1 Lymph % (Auto) 19.3 L [place] % (Auto) 9.9 Eos % (Auto) 1.6 Baso % (Auto) 1.1 Neut # (Auto) 5.7 Lymph # (Auto) 1.6 [place] # (Auto) 0.8 Eos # (Auto) 0.1 Baso # (Auto) 0.1 Sodium 138 Potassium 4.0 Chloride 100 Carbon Dioxide 29 Anion Gap 13 BUN 18 H Creatinine 1.0 Est GFR ( Amer) > 60 Est GFR (Non-Af Amer) 54 Random Glucose 106 H Calcium 9.1 Total Bilirubin 0.4 AST 27 ALT 18 Alkaline Phosphatase 81 Troponin I < 0.0120 NT-Pro-B Natriuret Pep 116 Total Protein 7.6 Albumin 3.9 Globulin 3.7 Albumin/Globulin Ratio 1.1 Assessment & Plan (1) Atypical chest pain Assessment and Plan: Hx arthritis Possibly costochondritis secondary to arthritis but pt with risk factors for ACS Troponin x1 is normal EKG shows NSR, similar to prior EKG Will trending EKG and Troponin x2 q6h BNP normal at 116 ASA 325 mg PO stat continue with ASA 81 mg PO daily Statin as below, pt already on beta padilla O2 PRN Tylenol prn mild pain, toradol 15 mg IVP q6 prn moderate pain F/u CXR Status: Acute (2) Impaired glucose tolerance Assessment and Plan: HgbA1c is 6.2 in 2017 F/u HgbA1c Januvia 50 mg PO daily RISS ACHS Accucheck ACHS Hypoglycemia protocol HHD/lowCCD Status: Acute (3) Hyperlipidemia Assessment and Plan: Will start crestor 5 mg PO QHS tonight F/u lipid panel in am Status: Acute (4) HTN (hypertension) Assessment and Plan: continue home coreg 25 mg po daily with holding parameter; sbp<100, HR<65 Status: Chronic (5) Hypothyroidism Assessment and Plan: Continue home synthroid 50 mcg daily F/u TSH, FT4 in am Status: Chronic (6) History of diverticulitis Assessment and Plan: Continue home bentyl 10 mg PO BID Status: Acute (7) Prophylactic measure Assessment and Plan: Pepcid 20 mg PO daily Heparin 5000 u SC q12, SCDs Pt is full code. Son, Maximino, will make medical decisinos as per pt if she is incapacitated. Status: Acute - Assessment and Plan (Free Text) Assessment: This is a 73 year old female with PMH costochondritis, anxiety, depression, diverticulitis, HTN, HLD, hypothyroidism, presented to ED with sons (Lore) c/o R sided chest pain, R upper arm pain and right sided neck pain worsening over the past 3 days. Likely 2/2 costochondritis due to reproducible chest pain on exam. Case discussed with Dr. Hui. All medical management as per Dr. Ez Reich PGY1
[2018-08-27 16:11] LABS: SQUAMOUS EPITHIAL < 1 /hpf (0-5); URINE BILIRUBIN NEGATIVE (NEGATIVE); URINE BLOOD NEGATIVE (NEGATIVE); URINE CLARITY Clear (Clear); URINE COLOR Straw (YELLOW); URINE GLUCOSE (UA) NORMAL (Normal); URINE LEUKOCYTE ESTERASE NEG Leu/uL (Negative); URINE PROTEIN NEGATIVE (NEGATIVE); URINE UROBILINOGEN NORMAL mg/dL (0.2-1.0)
[2018-08-27] MEDS ORDERED: Dextrose 50% SYRINGE Inj (50 ml) IV PRN (16:47)
[2018-08-27] MEDS ORDERED: Glucagon Recombinant 1 mg Inj IM PRN (16:47)
--- NOTE | 2018-08-27 17:28 | RAD ---
Chest x-ray single frontal view HISTORY: Chest pain. Comparison: 12/25/2017 Findings: Mild venous congestion. Patchy increased markings within the right infrahilar region. Small left pleural effusion with adjacent left basilar consolidative changes. Suggestion of deformities of several left lower lateral ribs. Cardiomegaly. Biapical pleural thickening with upper lobe granulomatous changes. Degenerative changes in the spine and shoulders. Impression: Mild venous congestion. Patchy increased markings within the right infrahilar region. Small left pleural effusion with adjacent left basilar consolidative changes. Suggestion of deformities of several left lower lateral ribs. Cardiomegaly.
[2018-08-27 20:14] LABS: CK-MB 0.25 ng/mL (0.0-3.38)
[2018-08-27] MEDS: (Novolin R) Insulin Human Regular 100 units/ml vial SC SCH (21:00)
[2018-08-27 23:52] LABS: BARBITURATES, UR NEGATIVE (NEGATIVE); BENZODIAZEPINES, UR NEGATIVE (NEGATIVE)
[2018-08-27 23:53] LABS: OPIATES, UR NEGATIVE (NEGATIVE); PHENCYCLIDINE, UR NEGATIVE (NEGATIVE)
[2018-08-28 01:49] VITALS: RESP 20
[2018-08-28 01:51] LABS: CK-MB 0.31 ng/mL (0.0-3.38)
[2018-08-28] MEDS ORDERED: Levothyroxine 50 MCG TAB PO SCH (06:30)
[2018-08-28 07:27] LABS: BASO % 0.3 % (0.0-2.0); EOS # 0.2 K/uL (0.0-0.7); EOS % 2.9 % (0.0-4.0); HEMOGLOBIN 15.1 g/dL (11.0-16.0); LYMPH # 1.6 K/uL (1.0-4.3); LYMPH % 20.8 % (20.0-40.0); MEAN CELL VOLUME 87.8 fL (81.0-99.0); MEAN CORPUSCULAR HEMOGLOBIN 29.9 pg (27.0-31.0); MEAN CORPUSCULAR HGB CONC 34.1 g/dL (33.0-37.0); MEAN PLATELET VOLUME 8.4 fL (7.2-11.7); MONO # 0.6 K/uL (0.0-0.8); MONO % 8.6 % (0.0-10.0); NEUT # 5.1 K/uL (1.8-7.0); NEUT % 67.4 % (50.0-75.0); NRBC % 0.1 % (0.0-2.0); RBC 5.05 Mil/uL (3.80-5.20); RED CELL DISTRIBUTION WIDTH 15.3 % (11.5-14.5); WHITE BLOOD COUNT 7.6 K/uL (4.8-10.8)
[2018-08-28 07:32] LABS: ALB/GLOB RATIO 1.2 (1.0-2.1); ALT/SGPT 19 U/L (9-52); AST/SGOT 26 U/L (14-36); BLOOD UREA NITROGEN 15 mg/dL (7-17); CALCIUM 9.3 mg/dl (8.6-10.4); GFR NON-AFRICAN AMERICAN > 60; HDL CHOLESTEROL 59 mg/dL (30-70)
[2018-08-28 07:43] LABS: LDL CHOLESTEROL 83 mg/dL (0-129)
[2018-08-28 07:56] VITALS: PULSE 56; TEMP 98; O2SAT 96
[2018-08-28] MEDS: (Novolin R) Insulin Human Regular 100 units/ml vial SC SCH ×2 (08:20→13:04)
[2018-08-28 09:39] VITALS: BP 136/80
--- NOTE | 2018-08-28 12:23 | CP.PCM.DIS ---
Provider - Provider Date of Admission: 08/27/18 14:53 Attending physician: Dmitry Hui Jr, MD Time Spent in preparation of Discharge (in minutes): 35 Diagnosis - Discharge Diagnosis (1) Atypical chest pain Status: Acute (2) Impaired glucose tolerance Status: Acute (3) Hyperlipidemia Status: Acute (4) HTN (hypertension) Status: Chronic (5) Hypothyroidism Status: Chronic (6) History of diverticulitis Status: Acute (7) Prophylactic measure Status: Acute Hospital Course - Lab Results Lab Results: Most Recent Lab Values WBC 7.6 K/uL (4.8-10.8) 08/28/18 07:11 RBC 5.05 Mil/uL (3.80-5.20) 08/28/18 07:11 Hgb 15.1 g/dL (11.0-16.0) 08/28/18 07:11 Hct 44.4 % (34.0-47.0) 08/28/18 07:11 MCV 87.8 fL (81.0-99.0) 08/28/18 07:11 MCH 29.9 pg (27.0-31.0) 08/28/18 07:11 MCHC 34.1 g/dL (33.0-37.0) 08/28/18 07:11 RDW 15.3 % (11.5-14.5) H 08/28/18 07:11 Plt Count 237 K/uL (130-400) 08/28/18 07:11 MPV 8.4 fL (7.2-11.7) 08/28/18 07:11 Neut % (Auto) 67.4 % (50.0-75.0) 08/28/18 07:11 Lymph % (Auto) 20.8 % (20.0-40.0) 08/28/18 07:11 [place] % (Auto) 8.6 % (0.0-10.0) 08/28/18 07:11 Eos % (Auto) 2.9 % (0.0-4.0) 08/28/18 07:11 Baso % (Auto) 0.3 % (0.0-2.0) 08/28/18 07:11 Neut # (Auto) 5.1 K/uL (1.8-7.0) 08/28/18 07:11 Lymph # (Auto) 1.6 K/uL (1.0-4.3) 08/28/18 07:11 [place] # (Auto) 0.6 K/uL (0.0-0.8) 08/28/18 07:11 Eos # (Auto) 0.2 K/uL (0.0-0.7) 08/28/18 07:11 Baso # (Auto) 0.0 K/uL (0.0-0.2) 08/28/18 07:11 Sodium 140 mmol/L (132-148) 08/28/18 07:11 Potassium 3.8 mmol/L (3.6-5.2) 08/28/18 07:11 Chloride 103 mmol/L (98-107) 08/28/18 07:11 Carbon Dioxide 27 mmol/L (22-30) 08/28/18 07:11 Anion Gap 14 (10-20) 08/28/18 07:11 BUN 15 mg/dL (7-17) 08/28/18 07:11 Creatinine 0.9 mg/dL (0.7-1.2) 08/28/18 07:11 Est GFR ( Amer) > 60 08/28/18 07:11 Est GFR (Non-Af Amer) > 60 08/28/18 07:11 POC Glucose (mg/dL) 92 mg/dL (65-110) 08/28/18 06:25 Random Glucose 104 mg/dL (65-105) 08/28/18 07:11 Hemoglobin A1c 6.3 % (4.2-6.5) 08/28/18 07:11 Calcium 9.3 mg/dl (8.6-10.4) 08/28/18 07:11 Phosphorus 3.6 mg/dL (2.5-4.5) 08/28/18 07:11 Magnesium 2.1 mg/dL (1.6-2.3) 08/28/18 07:11 Total Bilirubin 0.5 mg/dL (0.2-1.3) 08/28/18 07:11 AST 26 U/L (14-36) 08/28/18 07:11 ALT 19 U/L (9-52) 08/28/18 07:11 Alkaline Phosphatase 94 U/L (38-126) 08/28/18 07:11 Total Creatine Kinase 52 U/L (30-135) 08/28/18 01:24 CK-MB (Mass) 0.31 ng/mL (0.0-3.38) 08/28/18 01:24 Troponin I < 0.0120 ng/mL (0.00-0.120) 08/28/18 01:24 NT-Pro-B Natriuret Pep 116 pg/mL (0-900) 08/27/18 13:33 Total Protein 7.3 g/dL (6.3-8.3) 08/28/18 07:11 Albumin 4.0 g/dL (3.5-5.0) 08/28/18 07:11 Globulin 3.4 gm/dL (2.2-3.9) 08/28/18 07:11 Albumin/Globulin Ratio 1.2 (1.0-2.1) 08/28/18 07:11 Triglycerides 71 mg/dL (0-149) 08/28/18 07:11 Cholesterol 166 mg/dL (0-199) 08/28/18 07:11 LDL Cholesterol Direct 83 mg/dL (0-129) 08/28/18 07:11 HDL Cholesterol 59 mg/dL (30-70) 08/28/18 07:11 Free T4 1.73 ng/dL (0.78-2.19) 08/28/18 07:11 TSH 3rd Generation 3.28 mIU/L (0.46-4.68) 08/28/18 07:11 Urine Color Straw (YELLOW) 08/27/18 15:53 Urine Clarity Clear (Clear) 08/27/18 15:53 Urine pH 6.0 (5.0-8.0) 08/27/18 15:53 Ur Specific [place] 1.002 (1.003-1.030) L 08/27/18 15:53 Urine Protein Negative mg/dL (NEGATIVE) 08/27/18 15:53 Urine Glucose (UA) Normal mg/dL (Normal) 08/27/18 15:53 Urine Ketones Negative mg/dL (NEGATIVE) 08/27/18 15:53 Urine Blood Negative (NEGATIVE) 08/27/18 15:53 Urine Nitrate Negative (NEGATIVE) 08/27/18 15:53 Urine Bilirubin Negative (NEGATIVE) 08/27/18 15:53 Urine Urobilinogen Normal mg/dL (0.2-1.0) 08/27/18 15:53 Ur Leukocyte Esterase Neg [place]/uL (Negative) 08/27/18 15:53 Urine WBC (Auto) < 1 /hpf (0-5) 08/27/18 15:53 Ur Squamous Epith Cells < 1 /hpf (0-5) 08/27/18 15:53 Urine Opiates Screen Negative (NEGATIVE) 08/27/18 23:33 Urine Methadone Screen Negative (NEGATIVE) 08/27/18 23:33 Ur Barbiturates Screen Negative (NEGATIVE) 08/27/18 23:33 Ur Phencyclidine Scrn Negative (NEGATIVE) 08/27/18 23:33 Ur Amphetamines Screen Negative (NEGATIVE) 08/27/18 23:33 U Benzodiazepines Scrn Negative (NEGATIVE) 08/27/18 23:33 U Oth Cocaine Metabols Negative (NEGATIVE) 08/27/18 23:33 U Cannabinoids Screen Negative (NEGATIVE) 08/27/18 23:33 - Hospital Course Hospital Course: On admission: This is a 73 year old female with PMH costochondritis, anxiety, depr ession, diverticulitis, HTN, HLD, hypothyroidism, presented to ED with sons (Maximino and Adan) c/o R sided chest pain, R upper arm pain and right sided neck pain worsening over the past 3 days. She states that she was sitting when the pain started, and it is mostly constant, achy and associated with occasional "pins and needles" to the right side of the face. The achy pain radiates down the irght shoulder and into the right arm when she moves her head to the left. Pt admitted to the ED in november 2017 for similar pain, and was discahrged after being cleared by cardiology. Denies fever, chills, sob, palpitations, cough, abdomnial pain, n/v/d, headache, dizziness, loss of consciousness, trauma to the area, recent illness, hx of blood clot, recent travel, car rides longer than 4 hours. Pt recently seen by Dr. Hui 1 week ago, where regular bloodwork and an EKG was done, normal as per discussion with Dr. Hui by me. As per son, stress testing and echo within the past 2 years has been normal. Reports resolution of pain with Toradol 15 mg IV in the ED. Hospital course: Pt admitted for obs. Given ASA stat. Troponins negative, EKG is NSR and unchanged x3 and similar to prior on admission. CXR shows mild venous congetsion. Patchy increased markings. Small left pleural effusion with adjacent left basilar consolidative changes, but improved from prior CXR in November 2017. Chest pain resolved after NSAID administration in the ED. This is a summary of the hospital course, please see EMR for full details. Discharge Exam - Additional Findings Additional findings: - Constitutional Appears: Non-toxic, No Acute Distress - Head Exam Head Exam: ATRAUMATIC, NORMOCEPHALIC - Eye Exam Eye Exam: EOMI, Normal appearance, PERRL - ENT Exam ENT Exam: Mucous Membranes Moist - Neck Exam Respiratory Exam: (+) paravertebral tenderness bilaterally (right greater than left), no spinal tenderness, no step off, no rigidtity, limited ROM on rotation bilaterally. - Respiratory Exam Respiratory Exam: Chest Wall Tenderness, Clear to Auscultation Bilateral, NORMAL BREATHING PATTERN. absent: Rales, Rhonchi, Wheezes - Cardiovascular Exam Cardiovascular Exam: REGULAR RHYTHM, +S1, +S2. (+) diffuse anterior chest wall tenderness with muscle hypertonicity. absent: Gallop, Rubs, Systolic Murmur, Tachycardia - GI/Abdominal Exam GI & Abdominal Exam: Normal Bowel Sounds, Soft. absent: Distended, Firm, Guarding, Organomegaly, Rebound, Rigid, Tenderness - Extremities Exam Extremities exam: Positive for: full ROM, normal capillary refill, normal ins pection, pedal pulses present. Negative for: pedal edema - Neurological Exam Neurological exam: Alert, Oriented x3 - Psychiatric Exam Psychiatric exam: Normal affect, normal mood - Skin Skin Exam: Dry, Intact, Normal Color, Warm Discharge Plan - Discharge Medications Prescriptions: Aspirin [Aspirin Chewable] 81 mg PO DAILY #30 chew Rosuvastatin Calcium [Crestor] 5 mg PO HS #30 tab - Follow Up Plan Condition: GUARDED Disposition: HOME/ ROUTINE Additional Instructions: Pt is medically stable for discharge as per Dr. Hui Please continue home medications as previously prescribed. Prescriptions provided: Aspirin 81 mg one tab by mouth once daily at 8 am. Crestor 5 mg one tab by mouth once nightly at bedtime. Please follow up with Dr. Hui, within 2 weeks of discharge. Call to make appointment. Should symptoms worsen, please head to the nearest emergency department for further evaluation. Instructions explained to the pt, who understands and agrees with discharge plan. Pt es mdicamente estable para la jerel segn el Dr. Hui Por favor contine los medicamentos en casa nancy se prescribe anteriormente Por favor spencer clic para seguir con el Dr. Hui, dentro de las 2 semanas posteriores a la jerel. Llama para concertar abel. Si los sntomas empeoran, dirjase al departamento de emergencias ms cercano para lucas evaluacin adicional. Instrucciones explicadas al PT, que entiende y est de acuerdo con el plan de jerel.
[2018-08-28] MEDS ORDERED: Pneumococcal 23-Valent Vaccine IM ONE (13:51)
--- NOTE | 2018-08-29 15:00 | CARD ---
APPROVED REPORT Date of service: 08/28/2018 EKG Measurement Heart [id number] <Conclusion> Normal sinus rhythm Nonspecific T wave abnormality Abnormal ECG
--- NOTE | 2018-08-29 15:38 | CARD ---
APPROVED REPORT Date of service: 08/27/2018 EKG Measurement Heart [id number] <Conclusion> Normal sinus rhythm Normal ECG
--- NOTE | 2018-08-29 15:45 | CARD ---
APPROVED REPORT Date of service: 08/27/2018 EKG Measurement Heart [id number] <Conclusion> Normal sinus rhythm Minimal voltage criteria for LVH, may be normal variant Nonspecific T wave abnormality Abnormal ECG
== END 2018-08-28 14:39 | disposition home or self-care (01) ==
LOC: C.ER 12:56 → C.9E 14:53 → C.6T 15:41
PROVIDERS: ADMIT Internal Medicine; ATTEND Internal Medicine
DX: R07.89 Other chest pain (principal); R73.02 Impaired glucose tolerance (oral); E78.5 Hyperlipidemia, unspecified; I10 Essential (primary) hypertension; E03.9 Hypothyroidism, unspecified; F41.9 Anxiety disorder, unspecified; F32.9 Major depressive disorder, single episode, unspecified; Z79.899 Other long term (current) drug therapy; E78.00 Pure hypercholesterolemia, unspecified
CPT/HCPCS: 36415; 71045; 80053; 80061; 81001; 82948; 83036; 83735; 83880; 84100; 84439; 84443; 84484; 85025; 93005; 96374; 99285; G0378; G0480; J1644; J1885